=== PATIENT | female | born 1945 | race Caucasian/White ===

== ENCOUNTER 2019-10-02 09:19 | Outpatient (CLI) | payer BC, OTHER, SELFPAY ==
[2019-10-02 09:37] LABS: Add Urine Microscopic? NO; Appearance Urine Clear (Clear); Bilirubin Urine Negative (Negative); Blood Urine Negative (Negative); Color Urine Yellow (Yellow); Glucose Urine UA Negative (Negative); Ketones Urine Negative (Negative); Leukocyte Esterase Ur Negative (Negative); Nitrate Urine Negative (Negative); Protein Urine Negative (Negative); Specific Grav Ur 1.015 (1.010-1.020)
[2019-10-02 10:43] LABS: Alanine Aminotransferase 22 U/L (14-59); Albumin Level 3.8 g/dL (3.4-5.0); Alkaline Phosphatase 94 U/L (46-116); Anion Gap 11.5 mmol/L (7-16); Aspartate Amino Transferase 18 U/L (15-37); Bilirubin,Total 0.6 mg/dL (0.00-1.00); Blood Urea Nitrogen 17 mg/dL (7-18); Calcium 9.3 mg/dL (8.5-10.1); Carbon Dioxide 31 mmol/L (21-32); Chloride 104 mmol/L (98-108); Cholesterol 191 mg/dL (0-200); Creatine Kinase 46 U/L (26-192); Estimated Glomerular Filt Rate > 60; Free T3 2.78 pg/mL (2.18-3.98); Free T4 Free Thyroxine 1.14 ng/dL (0.76-1.46); Glucose 103 mg/dL (70-99); HDL Direct 76 mg/dL (40-60); LDL Cholesterol Calculated 105 mg/dL (<130); Osmolality Calculated 295 mOsm/kg (285-295); Potassium 4.5 mmol/L (3.5-5.1); Sodium 142 mmol/L (136-145); Thyroid Stimulating Hormone 0.12 uIU/mL (0.36-3.74); Total Protein 6.5 g/dL (6.4-8.2); Triglycerides 52 mg/dL (0-150)
== END 2019-10-02 09:20 | disposition home or self-care (01) ==
LOC: CHSLAB 09:25
PROVIDERS: PCP Internal Medicine; Visit Provider Internal Medicine
DX: E78.2 Mixed hyperlipidemia (principal); E03.4 Atrophy of thyroid (acquired)
CPT/HCPCS: 36415; 80053; 80061; 81003; 82550; 84439; 84443; 84481

== ENCOUNTER 2019-12-03 11:35 | Outpatient (CLI) | payer BC, OTHER, SELFPAY ==
[2019-12-03 13:06] LABS: Free T4 Free Thyroxine 1.13 ng/dL (0.76-1.46); Thyroid Stimulating Hormone 0.44 uIU/mL (0.36-3.74)
== END 2019-12-03 11:36 | disposition home or self-care (01) ==
LOC: CHSLAB 11:37
PROVIDERS: PCP Internal Medicine; Visit Provider Internal Medicine
DX: E03.4 Atrophy of thyroid (acquired) (principal)
CPT/HCPCS: 36415; 84439; 84443; 84481

== ENCOUNTER 2020-07-17 08:03 | Outpatient (CLI) | payer MEDICARE, SELFPAY ==
[2020-07-17 08:21] LABS: Appearance Urine Clear (Clear); Bilirubin Urine Negative (Negative); Color Urine Yellow (Yellow); Glucose Urine UA Negative (Negative); Ketones Urine Negative (Negative); Leukocyte Esterase Ur Negative (Negative); Nitrate Urine Negative (Negative); Protein Urine Negative (Negative)
[2020-07-17 08:26] LABS: Add Urine Microscopic? YES; Blood Urine Trace-Intact (Negative); WBC Urine 0-3 /hpf (0-3)
[2020-07-17 08:27] LABS: Bacteria Urine 1+ /hpf; Squamous Epithelial Cell Urine Many /hpf (Few)
[2020-07-17 09:05] LABS: Alanine Aminotransferase 23 U/L (14-59); Albumin Level 3.8 g/dL (3.4-5.0); Alkaline Phosphatase 84 U/L (46-116); Aspartate Amino Transferase 14 U/L (15-37); Bilirubin,Total 0.6 mg/dL (0.00-1.00); Blood Urea Nitrogen 15 mg/dL (7-18); Calcium 9.5 mg/dL (8.5-10.1); Carbon Dioxide 31 mmol/L (21-32); Cholesterol 198 mg/dL (0-200); Estimated Glomerular Filt Rate > 60; Free T3 2.41 pg/mL (2.18-3.98); Free T4 Free Thyroxine 1.08 ng/dL (0.76-1.46); Glucose 107 mg/dL (70-99); HDL Direct 73 mg/dL (40-60); LDL Cholesterol Calculated 109 mg/dL (<130); Thyroid Stimulating Hormone 0.47 uIU/mL (0.36-3.74); Total Protein 6.4 g/dL (6.4-8.2); Triglycerides 79 mg/dL (0-150)
[2020-07-17 09:10] LABS: Anion Gap 8 mmol/L (8-16); Chloride 104 mmol/L (98-108); Osmolality Calculated 296 mOsm/kg (285-295); Potassium 4.6 mmol/L (3.5-5.1); Sodium 143 mmol/L (136-145)
[2020-07-21 02:44] LABS: Vitamin D 25 Hydroxy 31 ng/mL (30-100)
== END 2020-07-17 08:04 | disposition home or self-care (01) ==
PROVIDERS: PCP Internal Medicine; Visit Provider Internal Medicine
DX: E03.4 Atrophy of thyroid (acquired) (principal); R73.01 Impaired fasting glucose; E78.2 Mixed hyperlipidemia; M81.0 Age-related osteoporosis without current pathological fracture
CPT/HCPCS: 36415; 80053; 80061; 81001; 82306; 83036; 84439; 84443; 84481

== ENCOUNTER 2021-01-08 09:01 | Outpatient (CLI) | payer MEDICARE, SELFPAY ==
--- NOTE | ~2021-01-08 | DEXA_ITS ---
Bone Density Report Name: Katina Bliss Age: 75 Sex: Female Ethnicity: White Date of : 1945 Indication: postmenopausal; screening for osteoporosis; height loss; prior fracture; hysterectomy; Referring Provider: Sintia Dunn Study: Bone densitometry was performed. Exam Date: January 08, 2021 Accession number: [id number] Bone Density: Region BMD T-score Z-score Classification AP Spine(L1, L2, L3) 0.899 -1.1 1.2 Osteopenia Femoral Neck (Left) 0.666 -1.6 0.4 Osteopenia Total Hip (Left) 0.824 -1.0 0.7 Normal Femoral Neck (Right) 0.714 -1.2 0.8 Osteopenia Total Hip (Right) 0.817 -1.0 0.7 Normal Femoral Neck Mean 0.690 -1.4 0.6 Osteopenia Total Hip Mean 0.820 -1.0 0.7 Normal World Health Organization criteria for BMD impression classify patients as: Normal (T-score at or above -1.0), Osteopenia (T-score between -1.0 and -2.5), or Osteoporosis (T-score at or below -2.5). 10-year Fracture Risk: FRAX not reported because: Prior hip or vertebral fracture Previous Exams: Region Exam Age BMD T-score BMD Change BMD Change Date g/cm2 vs Baseline vs Previous AP Spine (L1-L3) 01/08/2021 75 0.899 -1.1 -0.017 (-1.9%) -0.017 (-1.9%) 03/17/2007 61 0.916 -0.9 Total Hip(Left) 01/08/2021 75 0.824 -1.0 -0.095 (-10.4% -0.018 (-2.1%) 06/08/2017 72 0.841 -0.8 -0.078 (-8.5%) -0.012 (-1.4%) 12/03/2013 68 0.853 -0.7 -0.066 (-7.2%) -0.066 (-7.2%) 03/17/2007 61 0.919 -0.2 Total Hip(Right) 01/08/2021 75 0.817 -1.0 -0.100 (-10.9% -0.024 (-2.8%) 12/03/2013 68 0.841 -0.8 -0.077 (-8.4%) -0.077 (-8.4%) 03/17/2007 61 0.918 -0.2 *Denotes significance at 95% confidence level, LSC for AP Spine = 0.022 g/cm2, LSC for Total Hip = 0.027 g/cm2 # Denotes dissimilar scan types or analysis methods Clinical Information Provided by Patient: Have had a previous hip or vertebral fracture Has had a low trauma fracture Has the following medical conditions: Hysterectomy Patient maximum height was 63 No regular weight bearing exercise Drinks caffeinated beverages Onset of menses at age 15 Number of children 2 Impression: The patient has low bone mass, based on the Left Femoral Neck T-score. The patient has risk factors, including: previous fracture. No significant bone loss was observed. Discussion: INCREASED RISK OF FRACTURE DUE TO HISTORY OF FRACTURE. The patient's previous fracture puts the patient at high r
[2021-01-08 09:19] LABS: Appearance Urine Clear (Clear); Bilirubin Urine Negative (Negative); Color Urine Light Yellow (Yellow); Glucose Urine UA Negative (Negative); Ketones Urine Negative (Negative); Leukocyte Esterase Ur Negative (Negative); Nitrate Urine Negative (Negative); Protein Urine Negative (Negative)
[2021-01-08 09:42] LABS: Add Urine Microscopic? YES; Blood Urine Trace-Intact (Negative); RBC Urine 0-2 /hpf (0-2); Squamous Epithelial Cell Urine Few /hpf (Few); WBC Urine None seen /hpf (0-3)
[2021-01-08 09:43] LABS: Bacteria Urine Trace /hpf
[2021-01-08 10:21] LABS: Alanine Aminotransferase 25 U/L (14-59); Albumin Level 3.8 g/dL (3.4-5.0); Alkaline Phosphatase 83 U/L (46-116); Anion Gap 10 mmol/L (8-16); Bilirubin,Total 0.7 mg/dL (0.00-1.00); Calcium 9.3 mg/dL (8.5-10.1); Carbon Dioxide 29 mmol/L (21-32); Chloride 105 mmol/L (98-108); Cholesterol 215 mg/dL (0-200); Estimated Glomerular Filt Rate > 60; Free T3 2.29 pg/mL (2.18-3.98); Free T4 Free Thyroxine 1.08 ng/dL (0.76-1.46); Glucose 90 mg/dL (70-99); Potassium 3.9 mmol/L (3.5-5.1); Sodium 144 mmol/L (136-145); Thyroid Stimulating Hormone 1.31 uIU/mL (0.36-3.74); Total Protein 7.1 g/dL (6.4-8.2); Triglycerides 43 mg/dL (0-150)
[2021-01-08 15:52] LABS: Creatine Kinase 64 U/L (26-192)
[2021-01-09 18:58] LABS: Aspartate Amino Transferase 23 U/L (15-37); Blood Urea Nitrogen 18 mg/dL (7-18); Osmolality Calculated 299 mOsm/kg (285-295)
[2021-01-09 18:59] LABS: HDL Direct 78 mg/dL (40-60); LDL Cholesterol Calculated 128 mg/dL (<130)
[2021-01-12 14:47] LABS: Vitamin D 25 Hydroxy 28 ng/mL (30-100)
== END 2021-01-08 09:02 | disposition home or self-care (01) ==
LOC: CHSIMG 09:03
PROVIDERS: PCP Internal Medicine; Visit Provider Internal Medicine
DX: E03.4 Atrophy of thyroid (acquired) (principal); M81.0 Age-related osteoporosis without current pathological fracture; E78.2 Mixed hyperlipidemia
CPT/HCPCS: 36415; 77080; 80053; 80061; 81001; 82306; 82550; 84439; 84443; 84481

== ENCOUNTER 2021-03-27 13:35 | Outpatient (CLI) | payer MEDICARE, SELFPAY ==
--- NOTE | ~2021-03-27 | XR_ITS ---
EXAMINATION: XR shoulder RT min 2V DATE: 03/27/2021 14:09 INDICATION: Right shoulder pain. TECHNIQUE: 4 views of right shoulder were obtained. COMPARISON: Right shoulder radiographs 11/17/2017 FINDINGS: Bone alignment is normal. No fracture. There is mild osteoarthritis of glenohumeral joint a nd acromioclavicular joint. IMPRESSION: 1. Mild polyarticular osteoarthritis. Reviewed, dictated and finalized at location A.
--- NOTE | ~2021-03-27 | XR_ITS ---
[id number] 03/27/2021 14:09 Indication: Neck pain Procedure: 3 views cervical spine Comparison: 11/17/2017 Findings: There is normal cervical alert no cyst. Vertebral body heights are maintained. No preverteb ral soft tissue swelling. Odontoid process within normal limits. Mild multilevel uncinate degenerativ e change. Lung apices are normal Impression: 1: No significant abnormality of the cervical spine. Reviewed, dictated and finalized at location A. Impression: 1: No significant abnormality of the cervical spine.
== END 2021-03-27 13:36 | disposition home or self-care (01) ==
LOC: CHSIMG 13:38
PROVIDERS: PCP Internal Medicine; Visit Provider Nurse Practitioner Family
DX: M25.511 Pain in right shoulder (principal); M54.2 Cervicalgia
CPT/HCPCS: 72040; 73030

== ENCOUNTER 2021-07-25 07:53 | Outpatient (CLI) | payer MEDICARE, SELFPAY ==
[2021-07-25 08:35] LABS: Add Urine Microscopic? NO; Appearance Urine Clear (Clear); Bilirubin Urine Negative (Negative); Blood Urine Negative (Negative); Color Urine Light Yellow (Yellow); Glucose Urine UA Negative (Negative); Ketones Urine Negative (Negative); Leukocyte Esterase Ur Negative LEU/UL (Negative); Nitrate Urine Negative (Negative); Protein Urine Negative (Negative); pH Urine 7.5 (5.0-8.0)
[2021-07-25 08:37] LABS: Basophils Absolute Auto 0.06 K/mm3 (0.00-0.10); Eosinophils Absolute Auto 0.32 K/mm3 (0.02-0.50); Eosinophils Percent Auto 5.1 % (1.0-6.0); Hematocrit 45.7 % (35.0-42.0); Hemoglobin 14.8 g/dL (11.7-13.8); Immature Granulocyte Absolute 0.02 K/mm3 (0.00-0.00); Immature Granulocyte Percent A 0.3 % (0.0-0.0); Lymphocytes Absolute Auto 1.79 K/mm3 (1.10-4.50); Lymphocytes Percent Auto 28.5 % (18.0-42.0); Mean Corpuscular HGB Conc 32.4 g/dL (32.0-36.0); Mean Corpuscular Hemoglobin 29.8 pg (27.0-31.0); Mean Platelet Volume 9.6 fl (9.2-11.8); Monocytes Absolute Auto 0.77 K/mm3 (0.10-0.90); Monocytes Percent Auto 12.2 % (2.0-11.0); Neutrophils Absolute Auto 3.3 K/mm3 (1.7-7.2); Neutrophils Percent Auto 52.9 % (50.0-70.0); Platelet Count Result 321 K/mm3 (150-420); Red Blood Count 4.97 M/mm3 (4.20-5.40); Red Cell Distribution Width 13.7 % (11.6-14.4); White Blood Count 6.3 K/mm3 (4.8-10.8)
[2021-07-25 08:45] LABS: Hemoglobin A1C 6.1 % (<5.7)
[2021-07-25 08:48] LABS: Creatinine Urine 68.58 mg/dL (40-278); MALB Creatinine Ratio 18.9 mg/g (0-30); Microalbumin Urine Random < 13.0 mg/L
[2021-07-25 09:23] LABS: Alanine Aminotransferase 28 U/L (14-59); Albumin Level 3.7 g/dL (3.4-5.0); Alkaline Phosphatase 77 U/L (46-116); Anion Gap 7 mmol/L (8-16); Aspartate Amino Transferase 14 U/L (15-37); Bilirubin,Total 0.5 mg/dL (0.00-1.00); Blood Urea Nitrogen 14 mg/dL (7-18); Calcium 9.1 mg/dL (8.5-10.1); Carbon Dioxide 31 mmol/L (21-32); Chloride 105 mmol/L (98-108); Cholesterol 216 mg/dL (0-200); Creatine Kinase 43 U/L (26-192); Estimated Glomerular Filt Rate > 60; Free T3 2.07 pg/mL (2.18-3.98); Free T4 Free Thyroxine 1.08 ng/dL (0.76-1.46); Glucose 95 mg/dL (70-99); HDL Direct 79 mg/dL (40-60); LDL Cholesterol Calculated 127 mg/dL (<130); Osmolality Calculated 296 mOsm/kg (285-295); Potassium 4.7 mmol/L (3.5-5.1); Sodium 143 mmol/L (136-145); Thyroid Stimulating Hormone 1.53 uIU/mL (0.36-3.74); Total Protein 6.5 g/dL (6.4-8.2); Triglycerides 52 mg/dL (0-150)
== END 2021-07-25 07:54 | disposition home or self-care (01) ==
LOC: CHSLAB 07:55
PROVIDERS: PCP Internal Medicine; Visit Provider Internal Medicine
DX: E03.4 Atrophy of thyroid (acquired) (principal); E78.5 Hyperlipidemia, unspecified; R73.01 Impaired fasting glucose; N39.0 Urinary tract infection, site not specified
CPT/HCPCS: 36415; 80053; 80061; 81003; 82043; 82550; 83036; 84439; 84443; 84481; 85025

== ENCOUNTER 2022-02-06 07:29 | Outpatient (CLI) | payer MEDICARE, SELFPAY ==
[2022-02-06 07:49] LABS: Appearance Urine Clear (Clear); Basophils Absolute Auto 0.04 K/mm3 (0.00-0.10); Basophils Percent Auto 0.7 % (0.0-1.0); Bilirubin Urine Negative (Negative); Color Urine Light Yellow (Yellow); Eosinophils Absolute Auto 0.13 K/mm3 (0.02-0.50); Eosinophils Percent Auto 2.3 % (1.0-6.0); Glucose Urine UA Negative (Negative); Hematocrit 42.1 % (35.0-42.0); Hemoglobin 13.6 g/dL (11.7-13.8); Immature Granulocyte Absolute 0.02 K/mm3 (0.00-0.00); Immature Granulocyte Percent A 0.4 % (0.0-0.0); Ketones Urine Negative (Negative); Leukocyte Esterase Ur Negative (Negative); Lymphocytes Absolute Auto 1.51 K/mm3 (1.10-4.50); Lymphocytes Percent Auto 27.1 % (18.0-42.0); Mean Corpuscular HGB Conc 32.3 g/dL (32.0-36.0); Mean Corpuscular Hemoglobin 29.8 pg (27.0-31.0); Mean Corpuscular Volume 92.3 fL (78.0-102.0); Mean Platelet Volume 10.1 fl (9.2-11.8); Monocytes Absolute Auto 0.76 K/mm3 (0.10-0.90); Monocytes Percent Auto 13.6 % (2.0-11.0); Neutrophils Absolute Auto 3.1 K/mm3 (1.7-7.2); Neutrophils Percent Auto 55.9 % (50.0-70.0); Nitrate Urine Negative (Negative); Platelet Count Result 325 K/mm3 (150-420); Protein Urine Negative (Negative); Red Blood Count 4.56 M/mm3 (4.20-5.40); Red Cell Distribution Width 13.8 % (11.6-14.4); Specific Grav Ur 1.015 (1.010-1.020); Urobilinogen Urine 0.2 mg/dL (0.2-1.0); White Blood Count 5.6 K/mm3 (4.8-10.8); pH Urine 6.5 (5.0-8.0)
[2022-02-06 07:54] LABS: Add Urine Microscopic? YES; Bacteria Urine Trace /hpf; Blood Urine Trace-Intact (Negative); Squamous Epithelial Cell Urine Few /hpf (Few); WBC Urine None seen /hpf (0-3)
[2022-02-06 08:01] LABS: Hemoglobin A1C 5.9 % (<5.7)
[2022-02-06 08:15] LABS: Alanine Aminotransferase 23 U/L (14-59); Albumin Level 3.7 g/dL (3.4-5.0); Alkaline Phosphatase 83 U/L (46-116); Anion Gap 5 mmol/L (8-16); Aspartate Amino Transferase 17 U/L (15-37); Bilirubin,Total 0.7 mg/dL (0.00-1.00); Blood Urea Nitrogen 16 mg/dL (7-18); Calcium 9.2 mg/dL (8.5-10.1); Carbon Dioxide 32 mmol/L (21-32); Chloride 103 mmol/L (98-108); Cholesterol 199 mg/dL (0-200); Creatine Kinase 57 U/L (26-192); Estimated Glomerular Filt Rate > 60; Free T3 2.59 pg/mL (2.18-3.98); Free T4 Free Thyroxine 1.21 ng/dL (0.76-1.46); Glucose 102 mg/dL (70-99); HDL Direct 70 mg/dL (40-60); LDL Cholesterol Calculated 117 mg/dL (<130); Osmolality Calculated 291 mOsm/kg (285-295); Potassium 4.6 mmol/L (3.5-5.1); Sodium 140 mmol/L (136-145); Thyroid Stimulating Hormone 0.22 uIU/mL (0.36-3.74); Total Protein 6.6 g/dL (6.4-8.2); Triglycerides 59 mg/dL (0-150)
[2022-02-11 20:51] LABS: Vitamin D 25 Hydroxy 38 ng/mL (30-100)
== END 2022-02-06 07:30 | disposition home or self-care (01) ==
LOC: CHSLAB 07:32
PROVIDERS: PCP Internal Medicine; Visit Provider Internal Medicine
DX: E78.2 Mixed hyperlipidemia (principal); I10 Essential (primary) hypertension; R73.01 Impaired fasting glucose; M81.0 Age-related osteoporosis without current pathological fracture; E03.4 Atrophy of thyroid (acquired)
CPT/HCPCS: 36415; 80053; 80061; 81001; 82306; 82550; 83036; 84439; 84443; 84481; 85025

== ENCOUNTER 2022-09-25 08:30 | Outpatient (CLI) | payer MEDICARE, SELFPAY ==
[2022-09-25 08:50] LABS: Appearance Urine Clear (Clear); Bilirubin Urine Negative (Negative); Blood Urine 1+ (Negative); Color Urine Yellow (Yellow); Glucose Urine UA Negative (Negative); Ketones Urine Negative (Negative); Leukocyte Esterase Ur Trace (Negative); Nitrate Urine Negative (Negative); Protein Urine Negative (Negative); Specific Grav Ur >= 1.030 (1.010-1.020); pH Urine 5.5 (5.0-8.0)
[2022-09-25 08:52] LABS: Basophils Absolute Auto 0.05 K/mm3 (0.00-0.10); Basophils Percent Auto 0.9 % (0.0-1.0); Eosinophils Absolute Auto 0.18 K/mm3 (0.02-0.50); Eosinophils Percent Auto 3.4 % (1.0-6.0); Hematocrit 44.7 % (35.0-42.0); Hemoglobin 14.3 g/dL (11.7-13.8); Immature Granulocyte Absolute 0.03 K/mm3 (0.00-0.00); Immature Granulocyte Percent A 0.6 % (0.0-0.0); Lymphocytes Absolute Auto 1.19 K/mm3 (1.10-4.50); Lymphocytes Percent Auto 22.5 % (18.0-42.0); Mean Corpuscular Hemoglobin 29.3 pg (27.0-31.0); Mean Corpuscular Volume 91.6 fL (78.0-102.0); Mean Platelet Volume 9.9 fl (9.2-11.8); Monocytes Absolute Auto 0.78 K/mm3 (0.10-0.90); Monocytes Percent Auto 14.8 % (2.0-11.0); Neutrophils Absolute Auto 3.1 K/mm3 (1.7-7.2); Neutrophils Percent Auto 57.8 % (50.0-70.0); Platelet Count Result 321 K/mm3 (150-420); Red Blood Count 4.88 M/mm3 (4.20-5.40); Red Cell Distribution Width 13.3 % (11.6-14.4); White Blood Count 5.3 K/mm3 (4.8-10.8)
[2022-09-25 08:54] LABS: Add Urine Microscopic? YES; Bacteria Urine 1+ /hpf; Squamous Epithelial Cell Urine Moderate /hpf (Few); WBC Urine 0-3 /hpf (0-3)
[2022-09-25 09:29] LABS: Hemoglobin A1C 5.7 % (<5.7)
[2022-09-25 09:53] LABS: Alanine Aminotransferase 22 U/L (14-59); Alkaline Phosphatase 94 U/L (46-116); Anion Gap 7 mmol/L (8-16); Aspartate Amino Transferase 18 U/L (15-37); Bilirubin,Total 0.7 mg/dL (0.00-1.00); Blood Urea Nitrogen 14 mg/dL (7-18); Calcium 9.4 mg/dL (8.5-10.1); Carbon Dioxide 30 mmol/L (21-32); Chloride 105 mmol/L (98-108); Cholesterol 223 mg/dL (0-200); Creatine Kinase 51 U/L (26-192); Estimated Glomerular Filt Rate > 60; Glucose 100 mg/dL (70-99); HDL Direct 82 mg/dL (40-60); LDL Cholesterol Calculated 127 mg/dL (<130); Osmolality Calculated 294 mOsm/kg (285-295); Potassium 4.4 mmol/L (3.5-5.1); Sodium 142 mmol/L (136-145); Thyroid Stimulating Hormone 1.96 uIU/mL (0.36-3.74); Total Protein 6.8 g/dL (6.4-8.2); Triglycerides 71 mg/dL (0-150); Vitamin B12 554 pg/mL (193-986)
== END 2022-09-25 08:31 | disposition home or self-care (01) ==
LOC: CHSLAB 08:33
PROVIDERS: PCP Internal Medicine; Visit Provider Internal Medicine
DX: E78.2 Mixed hyperlipidemia (principal); E03.4 Atrophy of thyroid (acquired); M81.0 Age-related osteoporosis without current pathological fracture; R73.01 Impaired fasting glucose
CPT/HCPCS: 36415; 80053; 80061; 81001; 82550; 82607; 83036; 84439; 84443; 85025

== ENCOUNTER 2023-01-11 09:14 | Outpatient (RCR) | payer MEDICARE, SELFPAY ==
--- NOTE | 2023-01-11 11:05 | PTOPEVAL1 ---
Assessment and note entered by David Pandya Evaluation Information Assessment Status Evaluation Diagnosis right shoulder pain Onset 05/30/22 Subjective Information Pt. reports that she began developing shoulder pain in the winter. She began to notice that she could not reach behind her back to pull her pants up. She reports that sleeping is difficult due to throbbing pain in the shoulder. She states that she cannot lay on the right side. She reports that reaching overhead and behind her head is less difficult than reaching behind her back. She states that doctor fears she has a tear in the shoulder. She states that her biggest concern is her lack of mobility in the right shoulder. Pt. reports that she is right hand dominant. She reports that her goal is to decrease her right shoulder pain and improve her mobility. Reported Pain Level Pain Score 4: Self Report Assessment PT Clinical Summary Pt. is a 77 year old female who enters the clinic with right shoulder pain. She presents with objective findings consistent with right shoulder impingement. Continued skilled PT is indicated in order to improve mobility, strength, pain and postural awareness for improved IADL performance. Plan of Care Interventions Electrical Stimulation,Hot Pack/Cold Pack,Manual Therapy,Neuro Re-education,Therapeutic Activities, Therapeutic Exercise PT Services Indicated Yes Treatment Frequency and 3x/week x 12 visits Duration These treatments will address the objective and functional deficits as defined above. The patient will be advanced safely and appropriately in order for the patient to progress towards his/her prior level of function. Additional exercises will be introduced and as well as a comprehensive home exercise program upon discharge, if needed, ?to ensure carryover of functional gains achieved in the clinic. This treatment plan has been reviewed and agreement upon by the patient.
--- NOTE | 2023-01-11 11:06 | OPREHPOC ---
Outpatient Therapy Plan of Care This is a Multidisciplinary Plan of Care that may contain components documented by all disciplines (PT, OT, and ST.) PT Problem 1 PT Problem #1 Knowledge Deficit PT Goal 1 Goal Independent with a HEP addressing strength and postural control Target Visit 2 PT Problem 2 PT Problem #2 Impaired Strength PT Goal 1 Goal Pt. will present with 5/5 gross right shoulder strength Target Visit 8 PT Goal 2 Goal Pt. will be able to lift 5-10# object overhead with the right u.e. without pain. Target Visit 12 PT Problem 3 PT Problem #3 Impaired Range of Motion PT Goal 1 Goal Pt. will present with ability to reach to the mid thoracic region with the right u.e. for ease of dressing. Target Visit 12 PT Problem 4 PT Problem #4 Pain PT Goal 1 Goal Pt. will improve her Quick DASH score by 20%
--- NOTE | 2023-02-03 11:46 | OPREHPOC ---
Outpatient Therapy Plan of Care This is a Multidisciplinary Plan of Care that may contain components documented by all disciplines (PT, OT, and ST.) PT Problem 1 PT Problem #1 Knowledge Deficit PT Goal 1 Goal Independent with a HEP addressing strength and postural control Target Visit 2 Progress Met PT Problem 2 PT Problem #2 Impaired Strength PT Goal 1 Goal Pt. will present with 5/5 gross right shoulder strength Target Visit 12 Comment progressing PT Goal 2 Goal Pt. will be able to lift 5-10# object overhead with the right u.e. without pain. Target Visit 12 PT Problem 3 PT Problem #3 Impaired Range of Motion PT Goal 1 Goal Pt. will present with ability to reach to the mid thoracic region with the right u.e. for ease of dressing. Target Visit 12 Comment progressing PT Problem 4 PT Problem #4 Pain PT Goal 1 Goal Pt. will improve her Quick DASH score by 20%
--- NOTE | 2023-02-03 11:47 | PTOPPROG ---
Assessment and note entered by Marylou Pelletier DPT Evaluation Information Assessment Status Progress Diagnosis right shoulder pain Onset 05/30/22 Subjective Information Patient reports she has been able to reach to her back with improvement but does have a little discomfort. She reports she is stiffer in the mornings. She reports she has difficulty sleeping due to shoulder pain. Assessment PT Clinical Summary Patient has been seen for 10 visits of skilled PT. She is progressing well towards goals with improved R shoulder ROM and decreased pain. She continues to have difficulty with sleeping but reports improvement with reaching behind her back. She will benefit from remaining 2 visits to address impairments and return to PLOF. Plan of Care Interventions Electrical Stimulation,Hot Pack/Cold Pack,Manual Therapy,Neuro Re-education,Therapeutic Activities, Therapeutic Exercise PT Services Indicated Yes Treatment Frequency and continue with remaining 2 visits Duration These treatments will address the objective and functional deficits as defined above. The patient will be advanced safely and appropriately in order for the patient to progress towards his/her prior level of function. Additional exercises will be introduced and as well as a comprehensive home exercise program upon discharge, if needed, ?to ensure carryover of functional gains achieved in the clinic. This treatment plan has been reviewed and agreement upon by the patient.
== END 2023-02-07 09:52 | disposition home or self-care (01) ==
LOC: CHSPT 09:14
PROVIDERS: PCP Internal Medicine; Visit Provider Internal Medicine
DX: M25.511 Pain in right shoulder (principal)
CPT/HCPCS: 97014; 97110; 97140; 97161; G0283

== ENCOUNTER 2023-02-11 07:53 | Outpatient (CLI) | payer MEDICARE, SELFPAY ==
--- NOTE | ~2023-02-11 | MM_ITS ---
EXAMINATION: MM screening kenn BI w darvin HISTORY: Screening mammogram TECHNIQUE: Craniocaudal and mediolateral oblique 3-D tomosynthesis images were obtained and synthetic 2-D images were generated. CAD analysis was submitted and interpreted. COMPARISON: No prior mammogram is available for comparison at this institution. BREAST PARENCHYMAL COMPOSITION:There are scattered areas of fibroglandular density. FINDINGS: No suspicious mass, calcification, or architectural distortion are identified in either vijay ast to suggest malignancy. IMPRESSION: No mammographic evidence of malignancy. Recommend routine screening mammography in one year. BI-RADS Category 1: Negative Reviewed, dictated and finalized at location .
--- NOTE | ~2023-02-11 | DEXA_ITS ---
Bone Density Report Name: GLO RESENDEZ Age: 77 Sex: Female Ethnicity: White Date of : 1945 Indication: postmenopausal; screening for osteoporosis; height loss; inflammatory bowel disease; prior fracture; hysterectomy; Referring Provider: Sintia Dunn Study: Bone densitometry was performed. Exam Date: February 11, 2023 Accession number: [id number] Bone Density: Region BMD T-score Z-score Classification AP Spine(L2, L3) 1.072 0.1 2.6 Normal Femoral Neck (Left) 0.704 -1.3 0.8 Osteopenia Total Hip (Left) 0.830 -0.9 0.9 Normal Femoral Neck (Right) 0.709 -1.3 0.9 Osteopenia Total Hip (Right) 0.813 -1.1 0.8 Osteopenia Femoral Neck Mean 0.707 -1.3 0.8 Osteopenia Total Hip Mean 0.822 -1.0 0.8 Normal World Health Organization criteria for BMD impression classify patients as: Normal (T-score at or above -1.0), Osteopenia (T-score between -1.0 and -2.5), or Osteoporosis (T-score at or below -2.5). 10-year Fracture Risk: FRAX not reported because: Prior hip or vertebral fracture Clinical Information Provided by Patient: Have had a previous hip or vertebral fracture Has had a low trauma fracture Has used the following medications: HRT (i.e. estrogen/hormone therapy), Vitamin D, Calcium Has the following medical conditions: Inflammatory bowel diseases, Hysterectomy Patient maximum height was 62.5 Menopause Age: 52 No regular weight bearing exercise Drinks caffeinated beverages Onset of menses at age 15 Number of children 2 Impression: The patient has low bone mass, based on the Left Femoral Neck T-score. The patient has risk factors, including: previous fracture. Discussion: INCREASED RISK OF FRACTURE DUE TO HISTORY OF FRACTURE. The patient's previous fracture puts the patient at high risk of a future fracture. In untreated patients, the risk of osteoporotic fracture increases approximately two-fold for each 1.0 SD decrease in T-score. Low bone density is not the only risk factor for fracture; also consider factors such as patient's age, frailty or poor health, risk of falling, risk of injury, previous osteoporotic fracture, family history of osteoporosis, cigarette smoking, low body weight, etc. Not everyone with a low trauma fracture has osteoporosis; osteomalacia and other metabolic bone disorders should also be considered. Patients who have osteoporosis should be evaluated for specific diseases and conditions (secondary causes) that may cause or contribute to bone loss and fracture risk. National Osteoporosis Foundation (NOF) recommends pharmacologic intervention for patients with a prior hip or vertebral fracture regardless of BMD T-score. The patient should follow a healthful lifestyle (good nutrition with adequate calcium and vitamin D, and appropriate weight-bearing exercise). Follow-Up: Consider a repeat BMD and Vertebral Fracture Assessment (VF
== END 2023-02-11 07:54 | disposition home or self-care (01) ==
LOC: CHSIMG 07:55
PROVIDERS: PCP Internal Medicine; Visit Provider Internal Medicine
DX: Z12.31 Encounter for screening mammogram for malignant neoplasm of breast (principal); Z78.0 Asymptomatic menopausal state; M85.89 Other specified disorders of bone density and structure, multiple sites
CPT/HCPCS: 77063; 77067; 77080

== ENCOUNTER 2023-04-19 07:37 | Outpatient (CLI) | payer MEDICARE, SELFPAY ==
[2023-04-19 07:52] LABS: Basophils Absolute Auto 0.06 K/mm3 (0.00-0.10); Basophils Percent Auto 1.1 % (0.0-1.0); Eosinophils Percent Auto 3.8 % (1.0-6.0); Hematocrit 44.9 % (35.0-42.0); Hemoglobin 14.6 g/dL (11.7-13.8); Immature Granulocyte Absolute 0.01 K/mm3 (0.00-0.00); Immature Granulocyte Percent A 0.2 % (0.0-0.0); Lymphocytes Absolute Auto 1.34 K/mm3 (1.10-4.50); Lymphocytes Percent Auto 25.2 % (18.0-42.0); Mean Corpuscular HGB Conc 32.5 g/dL (32.0-36.0); Mean Corpuscular Hemoglobin 29.7 pg (27.0-31.0); Mean Corpuscular Volume 91.4 fL (78.0-102.0); Mean Platelet Volume 9.6 fl (9.2-11.8); Monocytes Absolute Auto 0.58 K/mm3 (0.10-0.90); Monocytes Percent Auto 10.9 % (2.0-11.0); Neutrophils Absolute Auto 3.1 K/mm3 (1.7-7.2); Neutrophils Percent Auto 58.8 % (50.0-70.0); Platelet Count Result 375 K/mm3 (150-420); Red Blood Count 4.91 M/mm3 (4.20-5.40); Red Cell Distribution Width 13.3 % (11.6-14.4); White Blood Count 5.3 K/mm3 (4.8-10.8)
[2023-04-19 07:54] LABS: Appearance Urine Clear (Clear); Bilirubin Urine 2+ (Negative); Blood Urine Trace-Intact (Negative); Glucose Urine UA Negative (Negative); Ketones Urine Trace (Negative); Leukocyte Esterase Ur Trace (Negative); Nitrate Urine Negative (Negative); Protein Urine 1+ (Negative); Specific Grav Ur 1.025 (1.010-1.020); pH Urine 6.5 (5.0-8.0)
[2023-04-19 08:10] LABS: Add Urine Microscopic? YES; Color Urine Dark Yellow (Yellow); RBC Urine 0-2 /hpf (0-2)
[2023-04-19 08:11] LABS: Bacteria Urine Rare /hpf; Squamous Epithelial Cell Urine Rare /hpf (Few); WBC Urine 0-3 /hpf (0-3)
[2023-04-19 08:15] LABS: Hemoglobin A1C 5.9 % (<5.7)
[2023-04-19 08:40] LABS: Alanine Aminotransferase 22 U/L (14-59); Albumin Level 3.7 g/dL (3.4-5.0); Alkaline Phosphatase 78 U/L (46-116); Anion Gap 7 mmol/L (8-16); Bilirubin,Total 0.7 mg/dL (0.00-1.00); Blood Urea Nitrogen 17 mg/dL (7-18); Calcium 9.1 mg/dL (8.5-10.1); Carbon Dioxide 31 mmol/L (21-32); Chloride 103 mmol/L (98-108); Cholesterol 226 mg/dL (0-200); Creatine Kinase 58 U/L (26-192); Estimated Glomerular Filt Rate > 60; Free T3 2.65 pg/mL (2.18-3.98); Free T4 Free Thyroxine 1.26 ng/dL (0.76-1.46); Glucose 105 mg/dL (70-99); HDL Direct 85 mg/dL (40-60); LDL Cholesterol Calculated 129 mg/dL (<130); Osmolality Calculated 293 mOsm/kg (285-295); Potassium 4.6 mmol/L (3.5-5.1); Sodium 141 mmol/L (136-145); Thyroid Stimulating Hormone 0.72 uIU/mL (0.36-3.74); Total Protein 6.5 g/dL (6.4-8.2); Triglycerides 60 mg/dL (0-150)
[2023-04-19 08:58] LABS: Aspartate Amino Transferase 18 U/L (15-37)
== END 2023-04-19 07:38 | disposition home or self-care (01) ==
LOC: CHSLAB 07:40
PROVIDERS: PCP Internal Medicine; Visit Provider Internal Medicine
DX: E78.2 Mixed hyperlipidemia (principal); R73.01 Impaired fasting glucose; E03.4 Atrophy of thyroid (acquired)
CPT/HCPCS: 36415; 80053; 80061; 81001; 82550; 83036; 84439; 84443; 84481; 85025

== ENCOUNTER 2023-10-29 07:18 | Outpatient (CLI) | payer MEDICARE, SELFPAY ==
[2023-10-29 10:19] LABS: Basophils Absolute Auto 0.03 K/mm3 (0.00-0.10); Basophils Percent Auto 0.5 % (0.0-1.0); Eosinophils Absolute Auto 0.12 K/mm3 (0.02-0.50); Eosinophils Percent Auto 2.2 % (1.0-6.0); Hematocrit 43.4 % (35.0-42.0); Hemoglobin 13.8 g/dL (11.7-13.8); Immature Granulocyte Absolute 0.03 K/mm3 (0.00-0.00); Immature Granulocyte Percent A 0.5 % (0.0-0.0); Lymphocytes Absolute Auto 1.35 K/mm3 (1.10-4.50); Lymphocytes Percent Auto 24.3 % (18.0-42.0); Mean Corpuscular HGB Conc 31.8 g/dL (32-36); Mean Corpuscular Hemoglobin 29.2 pg (27.0-31.0); Mean Corpuscular Volume 91.9 fL (78.0-102.0); Mean Platelet Volume 10.5 fl (9.2-11.8); Monocytes Absolute Auto 0.51 K/mm3 (0.10-0.90); Monocytes Percent Auto 9.2 % (2.0-11.0); Neutrophils Absolute Auto 3.51 K/mm3 (1.70-7.20); Neutrophils Percent Auto 63.3 % (50.0-70.0); Platelet Count Result 371 K/mm3 (150-420); Red Blood Count 4.72 M/mm3 (4.20-5.40); Red Cell Distribution Width 13.6 % (11.6-14.4); White Blood Count 5.6 K/mm3 (4.8-10.8)
[2023-10-29 10:37] LABS: Bilirubin Urine Negative (Negative); Blood Urine Negative (Negative); Color Urine Yellow (Yellow); Glucose Urine UA Negative (Negative); Ketones Urine Negative (Negative); Leukocyte Esterase Ur Trace LEU/UL (Negative); Nitrate Urine Negative (Negative); Protein Urine 1+ (Negative); pH Urine 8.5 (5.0-8.0)
[2023-10-29 10:43] LABS: Alanine Aminotransferase 24 U/L (14-59); Albumin Level 3.7 g/dL (3.4-5.0); Alkaline Phosphatase 53 U/L (46-116); Anion Gap 7 mmol/L (4-12); Aspartate Amino Transferase 18 U/L (15-37); Bilirubin,Total 0.7 mg/dL (0.00-1.00); Blood Urea Nitrogen 18 mg/dL (7-18); Calcium 8.9 mg/dL (8.5-10.1); Carbon Dioxide 32 mmol/L (21-32); Chloride 104 mmol/L (98-108); Cholesterol 208 mg/dL (0-200); Creatine Kinase 54 U/L (26-192); Estimated Glomerular Filt Rate > 60; Free T4 Free Thyroxine 1.17 ng/dL (0.76-1.46); Glucose 96 mg/dL (70-99); HDL Direct 75 mg/dL (40-60); LDL Cholesterol Calculated 123 mg/dL (<130); Osmolality Calculated 297 mOsm/kg (285-295); Potassium 4.7 mmol/L (3.5-5.1); Sodium 143 mmol/L (136-145); Thyroid Stimulating Hormone 1.01 uIU/mL (0.36-3.74); Total Protein 6.9 g/dL (6.4-8.2); Triglycerides 49 mg/dL (0-150)
[2023-10-29 10:49] LABS: Add Urine Microscopic? YES; Appearance Urine Sl Cloudy (Clear)
[2023-10-29 10:50] LABS: Bacteria Urine 1+ /hpf; RBC Urine 0-2 /hpf (0-2); Squamous Epithelial Cell Urine Many /hpf (Few); WBC Urine 0-3 /hpf (0-3)
[2023-10-29 10:53] LABS: Hemoglobin A1C 5.3 % (<5.7)
== END 2023-10-29 07:19 | disposition home or self-care (01) ==
LOC: CHSLAB 07:20
PROVIDERS: PCP Internal Medicine; Visit Provider Internal Medicine
DX: M81.0 Age-related osteoporosis without current pathological fracture (principal); E03.4 Atrophy of thyroid (acquired); E78.2 Mixed hyperlipidemia; R73.01 Impaired fasting glucose
CPT/HCPCS: 36415; 80053; 80061; 81001; 82550; 83036; 84439; 84443; 85025

== ENCOUNTER 2023-12-19 13:25 | Outpatient (CLI) | payer MEDICARE, SELFPAY ==
--- NOTE | 2024-01-18 11:23 | WPDHOLTEREM ---
Holter/Event Monitor Holter/Event Monitor Date of procedure: 12/19/23 Holter/Event Procedure: Event Monitor Indications: Palpitations Conclusion: 1. 28 days event monitor between 12/19/23-01/17/24. There are 38 available transmissions for analysis. 2. Underlying rhythm is sinus rhythm. HR range 50-120 bpm; average HR 76 bpm. 3. There are occasional premature supraventricular complexes with total burden no 1%. No supraventricular tachycardia. 4. There are occasional premature ventricular complexes with total burden of 2%. No ventricular tachycardia. 5. No significant pauses greater than 2 seconds. 6. There are 23 episodes of symptoms of heart racing, and symptom other than listed which demonstrate sinus rhythm, HR range 69-115 bpm with 2 episodes with PAC's and 14 episodes with PVC's.
== END 2023-12-19 13:26 | disposition home or self-care (01) ==
LOC: CHSCARD 13:28
PROVIDERS: PCP Internal Medicine; Visit Provider Internal Medicine
DX: R00.2 Palpitations (principal)
CPT/HCPCS: 93270

== ENCOUNTER 2024-02-10 11:09 | Outpatient (CLI) | payer MEDICARE, SELFPAY ==
[2024-02-10 11:22] LABS: Hematocrit 42.8 % (35.0-42.0); Hemoglobin 14.2 g/dL (11.7-13.8); Mean Corpuscular HGB Conc 33.2 g/dL (32-36); Mean Corpuscular Hemoglobin 30.1 pg (27.0-31.0); Mean Corpuscular Volume 90.9 fL (78.0-102.0); Mean Platelet Volume 9.5 fl (9.2-11.8); Platelet Count Result 317 K/mm3 (150-420); Red Blood Count 4.71 M/mm3 (4.20-5.40); Red Cell Distribution Width 13.6 % (11.6-14.4); White Blood Count 5.9 K/mm3 (4.8-10.8)
[2024-02-10 12:38] LABS: Band Neutrophils Percent 0 % (0-6); Eosinophils Absolute Manual 0.23 K/mm3 (0.02-0.50); Eosinophils Percent Manual 4 % (1-6); Lymphocytes Absolute Manual 1.18 K/mm3 (1.1-4.5); Lymphocytes Percent Manual 20 % (18-44); Monocytes Absolute Manual 0.94 K/mm3 (0.1-0.90); Monocytes Percent Manual 16 % (3-9); Neutrophils Absolute Manual 3.54 K/mm3 (1.7-7.2); Neutrophils Percent Manual 60 % (46-73); Platelet Estimate Adequate (Adequate); Schistocytes None Seen; Total Cells Counted 100
== END 2024-02-10 11:10 | disposition home or self-care (01) ==
LOC: CHSLAB 11:13
PROVIDERS: PCP Internal Medicine; Visit Provider Internal Medicine
DX: L03.90 Cellulitis, unspecified (principal)
CPT/HCPCS: 36415; 85025

== ENCOUNTER 2024-05-11 07:24 | Outpatient (CLI) | payer MEDICARE, SELFPAY ==
[2024-05-11 08:40] LABS: Add Urine Microscopic? NO; Appearance Urine Clear (Clear); Bilirubin Urine Negative (Negative); Blood Urine Negative (Negative); Color Urine Yellow (Yellow); Glucose Urine UA Negative (Negative); Ketones Urine Negative (Negative); Leukocyte Esterase Ur Negative (Negative); Nitrate Urine Negative (Negative); Protein Urine Negative (Negative); Specific Grav Ur 1.015 (1.010-1.020); pH Urine 8.5 (5.0-8.0)
[2024-05-11 08:43] LABS: Hematocrit 43.3 % (35.0-42.0); Hemoglobin 14.3 g/dL (11.7-13.8); Mean Corpuscular Hemoglobin 29.5 pg (27.0-31.0); Mean Corpuscular Volume 89.5 fL (78.0-102.0); Mean Platelet Volume 10.3 fl (9.2-11.8); Platelet Count Result 367 K/mm3 (150-420); Red Blood Count 4.84 M/mm3 (4.20-5.40); Red Cell Distribution Width 13.2 % (11.6-14.4); White Blood Count 6.1 K/mm3 (4.8-10.8)
[2024-05-11 08:58] LABS: Hemoglobin A1C 5.9 % (<5.7)
[2024-05-11 09:23] LABS: Alanine Aminotransferase 22 U/L (14-59); Albumin Level 3.8 g/dL (3.4-5.0); Alkaline Phosphatase 71 U/L (46-116); Anion Gap 8 mmol/L (4-12); Aspartate Amino Transferase 17 U/L (15-37); Bilirubin,Total 0.6 mg/dL (0.00-1.00); Blood Urea Nitrogen 14 mg/dL (7-18); Calcium 9.2 mg/dL (8.5-10.1); Carbon Dioxide 28 mmol/L (21-32); Chloride 104 mmol/L (98-108); Cholesterol 226 mg/dL (0-200); Creatine Kinase 55 U/L (26-192); Estimated Glomerular Filt Rate > 60; Free T4 Free Thyroxine 1.33 ng/dL (0.76-1.46); Glucose 105 mg/dL (70-99); HDL Direct 84 mg/dL (40-60); LDL Cholesterol Calculated 129 mg/dL (<130); Osmolality Calculated 290 mOsm/kg (285-295); Potassium 4.5 mmol/L (3.5-5.1); Sodium 140 mmol/L (136-145); Thyroid Stimulating Hormone 0.62 uIU/mL (0.36-3.74); Total Protein 6.6 g/dL (6.4-8.2); Triglycerides 66 mg/dL (0-150)
== END 2024-05-11 07:25 | disposition home or self-care (01) ==
PROVIDERS: PCP Internal Medicine; Visit Provider Internal Medicine
DX: E78.2 Mixed hyperlipidemia (principal); R73.01 Impaired fasting glucose; E03.4 Atrophy of thyroid (acquired)
CPT/HCPCS: 36415; 80053; 80061; 81003; 82550; 83036; 84439; 84443; 85027

== ENCOUNTER 2024-09-13 11:55 | Outpatient (CLI) | payer MEDICARE, SELFPAY ==
--- NOTE | ~2024-09-13 | DEXA_ITS ---
Bone Density Report Name: GLO RESENDEZ Age: 79 Sex: Female Ethnicity: White Date of : 1945 Indication: osteopenia; monitoring treatment; height loss; inflammatory bowel disease; prior fracture; hysterectomy; Referring Provider: Sintia Dunn Study: Bone densitometry was performed. Exam Date: September 13, 2024 Accession number: [id number] Bone Density: Region BMD T-score Z-score Classification AP Spine(L1, L2, L3) 0.996 -0.2 2.3 Normal Femoral Neck (Left) 0.700 -1.3 0.8 Osteopenia Total Hip (Left) 0.887 -0.4 1.5 Normal Femoral Neck (Right) 0.739 -1.0 1.2 Normal Total Hip (Right) 0.896 -0.4 1.5 Normal Femoral Neck Mean 0.720 -1.2 1.0 Osteopenia Total Hip Mean 0.892 -0.4 1.5 Normal World Health Organization criteria for BMD impression classify patients as: Normal (T-score at or above -1.0), Osteopenia (T-score between -1.0 and -2.5), or Osteoporosis (T-score at or below -2.5). 10-year Fracture Risk: FRAX not reported because: Prior hip or vertebral fracture Treated for osteoporosis Previous Exams: Region Exam Age BMD T-score BMD Change BMD Change Date g/cm2 vs Baseline vs Previous AP Spine (L1-L3) 09/13/2024 79 0.996 -0.2 0.080 (8.7%)# 0.097 (10.8%)* 01/08/2021 75 0.899 -1.1 -0.017 (-1.9%) -0.017 (-1.9%) 03/17/2007 61 0.916 -0.9 *Denotes significance at 95% confidence level, LSC for AP Spine = 0.022 g/cm2 # Denotes dissimilar scan types or analysis methods Clinical Information Provided by Patient: Have had a previous hip or vertebral fracture Has had a low trauma fracture Is being treated for osteoporosis Has used the following medications: Fosamax (i.e. alendronate), Vitamin D Has the following medical conditions: Inflammatory bowel diseases, Hysterectomy Patient maximum height was 64 Menopause Age: 52 No regular weight bearing exercise Drinks caffeinated beverages Onset of menses at age 15 Number of children 2 Impression: The patient has low bone mass, based on the Left Femoral Neck T-score. The patient has risk factors, including: previous fracture. No significant bone loss was observed. Discussion: PATIENT UNDER TREATMENT WITH NO SIGNIFICANT BMD LOSS SINCE LAST EXAM. In an untreated patient, BMD typically declines with age. A lack of decline or gain is usually a sign that treatment is efficacious and fracture risk is reduced. It is important to ask patients whether they are taking their medications and to encourage continued and appropriate compliance with their osteoporosis therapies to reduce fracture risk. It is also important to review their risk factors and encourage appropriate calcium and vitamin D intakes, exercise, fall prevention and other lifestyle measures. Follow-Up: Consider a repeat BMD and Vertebral Fracture Assessment (VFA) exam in 2 years or sooner if medically necessary, to reassess this patient's status. Reported by: WEN on 09/13/2024 12:49:00 PM. Reviewed, dictated and finalized at location A.
--- NOTE | ~2024-09-13 | MM_ITS ---
EXAMINATION: MM screening kenn BI w darvin HISTORY: Screening TECHNIQUE: Craniocaudal and mediolateral oblique 3-D tomosynthesis images were obtained and synthetic 2-D images were generated. CAD analysis was submitted and interpreted. COMPARISON: 02/11/2023 BREAST PARENCHYMAL COMPOSITION: Not dense: There are scattered areas of fibroglandular density. FINDINGS: There is no evidence of suspicious mass, calcification, or architectural distortion to sugg est malignancy in either breast. There has been no suspicious interval change. IMPRESSION: 1. No mammographic evidence of malignancy. 2. Recommend routine screening mammography in one year. BI-RADS Category 1: Negative Reviewed, dictated and finalized at location B.
--- OUTSIDE RECORDS SUMMARY | 2024-09-13 12:31 | XMS_ITS | Clinical Summary ---
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 Indications: Major Depressive Disorder Active citalopram (CELEXA) 20 MG TabletIndicatio ns:Depression Take 20 mg by mouth daily. Indications: Depression Active levothyroxine (SYNTHROID) 100 MCG TabletIndicatio ns:Hypothyroidi sm Take 100 mcg by mouth daily. Indications: Underactive Thyroid Active lovastatin (MEVACOR) 20 MG Tablet Take 20 mg by mouth every evening. Active Ferrous Sulfate (IRON) 325 (65 FE) MG TabletIndicatio ns:Iron Deficiency Anemia Take by mouth. Indications: Anemia From Inadequate Iron in the Body Active Ibuprofen (ADVIL) 200 MG CapsuleIndicati ons:Rheumatoid Arthritis Take by mouth. Indications: Rheumatoid Arthritis Active FLUZONE HIGH-DOSE 0.5 ML Suspension Prefilled Syringe 0 5 Active Immunizations Immunization Administration Dates Next Due Influenza Vaccine greater than 3 yrs 04/01/2015 Family History Medical History Relation Name Comments Alcohol Abuse Father Cancer Father Cancer Mother Cancer Sister Relation Name Status Comments Father Mother Sister Social History Tobacco Use Types Packs/Day Years Used Date Smoking Tobacco: Never Alcohol Use Standard Drinks/Week Comments No 0 (1 standard drink = 0.6 oz pur e alcohol) Comments No Sex and Gender Information Value Date Recorded Sex Assigned at Not on file Legal Sex Female 11:37 PM CDT Gender Identity Not on file Sexual Orientation Not on file Last Filed Vital Signs Vital Sign Reading Time Taken Comments Blood Pressure 122/80 05/20/2015 10:11 AM 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 [employer] Pulse 86 05/20/2015 10:11 AM 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 [employer] Temperature - - Respiratory Rate - - Oxygen Saturation - - Inhaled Oxygen Concentration - - Weight 57.6 kg (127 lb) 05/20/2015 10:11 AM 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 [employer] Height 155.8 cm (5' 1.34 ) 05/20/2015 10:11 AM C Body Mass Index 23.73 05/20/2015 10:11 AM 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 [employer] Plan of Treatment Health Maintenance Due Date Last Done Comments DEXA Bone Density 1945 Hepatitis C Virus (HCV) Screening 1945 TdaP Immunization 1945 Pneumococcal Immunization (5 0+ years) (1 of 1 - PCV) 1997 Zoster Immunization (1 of 2) 1997 Respiratory Syncytial Virus (RSV) Immunization (Adult) (1 - 1-dose 75+ series) 2022 Influenza Immunization (#1) 2024 04/01/2015 SARS-COV-2 Immunization ( - season) 2024 Hepatitis B Immunization Aged Out No longer eligible based on patient's age to complete this topic Meningococcal Immunization (ACWY) Aged Out No longer eligible based on patient's age to complete this topic Rotavirus Immunization Aged Out No lo nger eligible based on patient's age to complete this topic Insurance [facility] Care Teams Gas Stove Servicer Helper Relationship Specialty Start Date End Date Sintia Dunn MD [address] [id number] PCP - General Family Medicine 05/07/15
--- OUTSIDE RECORDS SUMMARY | 2024-09-13 12:31 | XMS_ITS | Clinical Summary ---
Author Organization [facility] Address [address] [place] [id number] Care Team Providers Care Tool Adjuster Name Role Phone Unavailable Primary Care Provider Unavailabl e Social History Tobacco Use Types Packs/Day Years Used Date Smoking Tobacco: Never Assessed Comments Unknown Sex and Gender Information Value Date Recorded Sex Assigned at Not on file Legal Sex Female 7:55 PM CDT Gender Identity Not on file Sexual Orientation Not on file Plan of Treatment Health Maintenance Due Date Last Done Comments Hepatitis C 1965 DTaP, Tdap and Td Vaccines ( 1 - Tdap) 1966 Zoster Vaccines (1 of 2) 1997 Dexa Scan (General) 2012 Pneumococcal Vaccine: 50+ Ye ars (1 of 1 - PCV) 2012 RSV Immunization or 60+ Years (1 - 1-dose 75+ series) 2022 COVID-19 Vaccine ( - 2023-2 5 season) 2024 Meningococcal B Vaccine Aged Out No l onger eligible based on patient's age to complete this topic Meningococcal Vaccine Aged Out No anabela deirdre eligible based on patient's age to complete this topic RSV Immunizations Under 20 Months Aged Out No longer eligible based on patient's age to complete this topic
--- OUTSIDE RECORDS SUMMARY | 2024-09-13 12:31 | XMS_ITS | Continuity of Care Document ---
Author Organization [facility] [place] [place] [address] [place] [address] Phone Care Team Providers Care Insurance Follow Up Rep Name Role Phone Mino Sawyer MD Unavailable Unavailable Allergies, Adverse Reactions, Alerts Substance Reaction Status Criticality morphine Active No Information Medications Medication Instructions Dosage Effective Dates (start - stop) Status Comments bupropion HCl SR 150 mg tablet,12 hr sustained-release take 1 tablet by oral route 2 times every day 150 MG - Active TIROSINT (unknown strength) 1 tablet by mouth once a day Not Available - Active lovastatin 40 mg tablet take 1 tablet by oral route every day with the evening meal 40 MG - Active duloxetine 30 mg capsule,delayed release take 1 capsule by oral route every day 30 MG - Active Procedures Procedure Date Post-op Follow-up Visit No Charge Refraction After Cataract Laser Surgery Post-op Follow-up Visit Post-op Follow-up Visit No Charge Refraction After Cataract Laser Surgery Eye Exam & Treatment No Charge Refraction Post-op Follow-up Visit Post-op Follow-up Visit Post-op Follow-up Visit Post-op Follow-up Visit Remove Cataract, Insert Lens Astigmatism Correcting Toric IOL Symfony IOLMaster-Professional No Charge Refraction Post-op Follow-up Visit No Charge Refraction Post-op Follow-up Visit Post-op Follow-up Visit Remove Cataract, Insert Lens Presbyopia Correcting IOL Symfony IOLMaster-Professional Corneal Topography IOLMaster-Technical No Charge Refraction Office/outpatient Visit, Est IOLMaster-Technical No Charge Refraction Eye Exam & Treatment Office/outpatient Visit, Est Office/outpatient Visit, Est Office/outpatient Visit, New Advance Directives Directive Yes / No Effective Date File Name No Information Encounters Encounter Description Practice Location Reason(s) For Visit Diagnoses Date Provider Providers Copied on Encounter [facility], [address] [place], [place] [address], [place], [address], tel:[phone] SEC Yosi BARON Professional 1 month s/p YAG PC (chief complaint) Encounter for examination following surgery Silverio Herzog. [address] [facility] [place], [address], [place]. tel:[phone] Referring Provider: Xavier Middleton OD, [facility] [address] [place], [address]. tel:[phone] [facility], [address] [place] [address] [address], [place], [place], [address], tel:[phone] SEC [place] Professional Laser procedure (chief complaint) Encounter for examination following surgeryOther secondary cataract, left eye 9 Silverio Herzog. [address] [employer], [facility] [place], [address], [place]. tel:[phone] Referring Provider: Xavier Middleton OD, [facility] [address] [place], [address]. tel:[phone] [facility], [address], [place], [place], [address], [place] tel:[phone] SEC Yosi BARON Professional Blurry vision (chief complaint) Encounter for examination following surgery 8 Silverio Herzog. [address], [place], [place], [address], [place]. tel:[phone] Referring Provider: Xavier Middleton OD, [facility] [address] [place], [address]. tel:[phone] [facility], [address], [place], [place], [address], [place] tel:[phone] SEC Yosi BARON Professional Complete Exam (chief complaint) Other secondary cataract, bilateralPre sence of intraocular lens 8 Silverio Herzog. [address], [place], [place], [address], [place]. tel:[phone] Referring Provider: Xavier Middleton OD, [facility] [address] [place], [address]. tel:[phone] [facility], [address], [place], [place], [address], [place] tel:[phone] SEC Yosi BARON Professional No Information 8 Silverio Herzog. [address], [place], [place], [address], [place]. tel:[phone] [facility], [address], [place], [place], [address], [place] tel:[phone] SEC Yosi BARON Professional Post-Op (chief complaint) No Information 7 Silverio Herzog. [address], [place], [place], [address], [place]. tel:[phone] Referring Provider: Xavier Middleton OD, [facility] [address] [place], [address]. tel:[phone] [facility], [address] [place] [address] [address], [place], [place], [address], [place] tel:[phone] SEC Yosi BARON Professional 1 wk Symphony PO (chief complaint) No Information b-2 4-201 7 Silverio Herzog. [address] [employer], [address] [place], [address], [place]. tel:[phone] Referring Provider: Xavier Middleton OD, [facility] [address] [place], [address]. tel:[phone] [facility], [address] [place] [address] [address], [place], [place], [address], [place] [phone] SEC Yosi BARON Professional 2 day PO (chief complaint) No Information b-1 0-201 7 Silverio Herzog. [address] [employer], [address] [place], [address], [place]. tel:[phone] Referring Provider: Xavier Middleton OD, [facility] [address] [place], [address]. tel:[phone] [facility], [address] [place] [address] [address], [place], [place], [address], [place] tel:[phone] SEC Yosi BARON Professional Post-Op (chief complaint) No Information Feb-0 9-201 7 Asiya [place]. [address] [employer], [place], [place], [address], [place]. tel:[phone] Referring Provider: Xavier Middleton OD, [facility] [address] [place], [address]. tel:[phone] [facility], [address] [place] [address] [address], [place], [place], [address], [place] [phone] [facility] [facility] No Information 0 7 Silverio Herzog. [address] [facility], [facility] [place], [address], [place]. tel:[phone] Referring Provider: Xavier Middleton OD, [facility] [address] [place], [address]. tel:[phone] [facility], [address] [place] [address] [address], [address], tel:[phone] SEC [place] [facility] No Information 0 7 Silverio Herzog. [address] [facility], [facility] [place], [address], [place]. tel:[phone] Referring Provider: Xavier Middleton OD, [facility] [address] [place], [address]. tel:[phone] [facility], [address] [place] [address] [address], [address], [place] tel:[phone] SEC [place] Professional Post-Op (chief complaint) No Information 0 7 Silverio Herzog. [address] [facility], [facility] [place], [address], [place]. tel:[phone] Referring Provider: Xavier Middleton OD, [facility] [address] [place], [address]. tel:[phone] [facility], [address] [place] [address] [address], [address], [place] tel:[phone] SEC [place] Professional 1 week post op (chief complaint) No Information 7 Silverio Herzog. [address] [facility], [facility] [place], [address], [place]. tel:[phone] Referring Provider: Xavier Middleton OD, [facility] [address] [place], [address]. tel:[phone] [facility], [address], [place], [place], [address], [place] tel:[phone] SEC [place] [employer] Professional 1 day PO PCIOL Symphony Lens (chief complaint) No Information 7 Asiya [place]. [address], [address] [place], [address], [place]. tel:[phone] Referring Provider: Xavier Middleton OD, [facility] [address] [place], [address]. tel:[phone] [facility], [address] [place] [address] [address], [place], [place], [address], [place] tel:[phone] [facility] No Information Silverio Herzog. [address], [address] [place], [address], [place]. tel:[phone] Referring Provider: Xavier Middleton OD, [facility] [address] [place], [address]. tel:[phone] [facility], [address] [place] [address] [address], [place], [place], [address], [place] tel:[phone] SEC Srikanth Ramirezh No Information Silverio Herzog. [address], [address] [place], [address], [place]. tel:[phone] Referring Provider: Xavier Middleton OD, [facility] [address] [place], [address]. tel:[phone] [facility], [address] [place] [address] [address], [place], [place], [address], [place] tel:[phone] SEC Srikanth N [address] Repeat Measurements (chief complaint) No Information 6 Silverio Herzog. [address], [place], [place], [address], [place]. tel:[phone] Referring Provider: Xavier Emi OD, [facility] [address] [place], [address]. tel:[phone] Office/outpa tient Visit, [facility], [address] [place] [address] [address], [place], [place], [address], [place] tel:[phone] SEC [place] [employer] Professional Cataract evaluation (chief complaint) No Information Oct-2 6-201 6 Silverio Herzog. [address] [facility], [facility] [place], [address], [place]. tel:[phone] Referring Provider: Xaveir Emi OD, [facility] [address] [place], [address]. tel:[phone] [facility], [address] [place] [address] [address], [place], [place], [address], [place] tel:[phone] SEC Yosi [place] Professional Complete Exam (chief complaint) No Information Oct-0 5-201 6 Richkconcetta [place]. [address] [facility], [facility] [place], [address], [place]. tel:[phone] Referring Provider: Xavier Emi OD, [facility] [address] [place], [address]. tel:[phone] Office/outpa tient Visit, [facility], [address] [place] [address] [address], [place], [place], [address], [place] tel:[phone] SEC [employer] Professional No Information Dec-3 0-201 3 Asiya [place]. [address] [facility] [place], [address], [place]. tel:[phone] Referring Provider: Xavierfloridalma Middleton OD, [facility] [address] [place], [address]. tel:[phone] Office/outpa tient Visit, [facility], [address], [place], [place], [address], [place] tel:[phone] SEC Yosi BARON Professional No Information 3 Asiya [place]. [address] [employer], [facility] [place], [address], [place]. tel:[phone] Referring Provider: Xavier Middleton OD, [facility] [address] [place], [address]. tel:[phone] Office/outpa tient Visit, [email or web address] [address], [place], [place], [address], [place] tel:[phone] SEC Yosi LORAINE Professional No Information 2 Asiya [place]. [address] [employer], [facility] [place], [address], [place]. tel:[phone] Referring Provider: Xavier Middleton OD, [facility] [address] [place], [address]. tel:[phone] Family History Family Member Type Diagnosis Age At Onset Son Problem (finding) retinal detachment Payers Payer name Insurance type Covered constitution party ID Authoriza tion(s) No Information Social History Type Description Quantity Date Captured Comments Alcohol Use Details Caffeine Use Details Tobacco Use Status Current non-smoker 19 Smoking Status Never smoker Non-Smoking Tobacco Use Details : No Details Available : No Details Available Sex Female Chief Complaint And Reason For Visit From encounter dated '07/10/2018 14:45'. 1 month s/p YAG PC (chief complaint). Description: The 73 year old female presents for evaluation of 1 month s/p YAG PC in the left eye. Patient states VA is great since the laser she only wears OTC reading glasses to see up close. Reason For Referral Reason For Referral No Information Plan Of Treatment Date Type Action Status Patient Education Learning About YAG Lase r Capsulotomy completed Patient Education Learning About YAG Lase r Capsulotomy completed History Of Present Illness Encounter Date Complaint History Of Prese nt Illness 1 month s/p YAG PC The 73 year o ld female presents for evaluation of 1 month s/p YAG PC in the left eye. Patient states VA is great since the laser she only wears OTC reading glasses to see up close. Laser procedure The 73 year old female presents for a YAG PC OS and a 1 month post op yag pc OD. Patient states vision OD is alot better. Patient states it's like looking through a dirty glass with OS. Blurry vision The 73 year old female presents for evaluation of Blurry vision in the left eye. Pt reports OD is very bright and clear. Pt reports she thinks OS is more blurry than when she came in to see us this am. Pt denies any pain or irritation, OU. Complete Exam The 73 year old female presents for evaluation of Complete Exam in the right eye and left eye. Hx of Symfony IOL OD and Symfony Toric IOL OS. Patient states VA is foggy and cloudy started about 2 months ago. Post-Op The 71 year old female presents for a 1 month post op CE OS (Symfony). Patient is pseudo ou with Symfony lens. Patient is finished with drops. Patient states ou is doing good. 1 wk Symphony PO The 71 year old female presents for 1 wk Symphony PO in the left eye. Pt has Hx of PCIOL OU with Symphony Toric OS with small wrinkle @ 57 degrees and Symphony OD, high myopia OU, Lattice Degeneration OU and floaters OS. Pt still using Diclofenac, Pred, and Vigamox as directed. Pt denies any pain, irritation, or discomfort OU. 2 day PO The 71 year old female presents for 2 day PO in the left eye. S/p PCIOL Symphony Toric. Per Dr. Braden, due to OS wrinkle. Pt states no VA complaints, pain, or discomfort. Pt using all Sx as instructed. Post-Op The 71 year old female presents for a 1 day post op CE OS with Symfony toric IOL. Patient is using Pred qid, Vigamox qid and Diclofenac tid OS. Patient is still using drops in OD. Patient has a little discomfort OS. Post-Op The 71 year old female presents for a 2 week post op CE OD (Symfony). Patient is using Pred, Diclofenac and Vigamox as directed. Patient c/o yesterday she was reading and got a headache and just had some discomfort. Patient notices a difference between eyes and c/o hard to watch TV and to read small print. 1 week post op The 71 year old female presents for 1 week post op in the right eye with Symfony lens. Pt states she cannot use old glasses even with plano lens and is off balance. Pt is using Vigamox TID OD, Diclofenac TID OD, Pred TID OD. 1 day PO PCIOL Symphony Lens The 71 year old female presents for 1 day PO PCIOL Symphony Lens in the right eye. Hx Cataracts OS, High Myopia OU. Pt using Vigamox and Pred QID OD and Diclo TID OD. Post op instructions explained, understood and given to pt. Pt states OD is doing ok. States she is not having any pain or discomfort and VA is good. Repeat Measurements The 71 year old female presents for Repeat Measurements in the right eye and left eye. Pt here for Repeat IOL master, Pentacam and see JMN to go over lens options Cataract evaluation The 70 year old female presents for Cataract evaluation ou per Dr. Braden. Patient c/o glare at night. Patient c/o harder to see the words on TV and harder to see street signs. Complete Exam The 70 year old female presents for Complete Exam in the right eye and left eye monitoring lattice degeneration. Patient c/o hard to see the words on TV and c/o glare at night. Patient c/o harder to read street signs. Functional Status Date Functional Assessmen t No Information Instructions Date Instruction Additional Korinr jose Impression/Plan Impression/Plan Impression/Plan Impression/Plan Impression/Plan - 1 month s/p Phaco Symfony Toric IOL OS:- Patient has healed well.- All post operative medications are finished.- Vision is good and IOP is stable.- Patient will return to Xavier Middleton OD for regularly scheduled visits. Follow up - Return t o Xavier Middleton, OD Impression/Plan - On e week PO s/p Phaco with Symfony Toric IOL OS:- IOL in good position; healing well.- Patient advised they no longer need to wear the shield over the eye at bedtime.- Medication instillation and post op instructions reviewed.- Patient will return in 1 week or sooner with problems.*NO dilation required at the next appointment unless the vision is decreased in either eye* Follow up - Return t o clinic as scheduled Follow up - Return t o clinic as scheduled Impression/Plan - 2 Day PO s/p Phaco with Symfony IOL OS.- IOL in good position at 57 degrees.- Patient healing well.- Mild PC wrinkle OS discussed with patient.- No treatment for the wrinkle recommended at this time.- Recommend the use of +1.50 or +1.75 OTCR reading glasses.- Medication instillation, shield use and restrictions reviewed with patient.- Return to clinic as scheduled or sooner with problems. Impression/Plan - 1 day post op Phaco with PCIOL OS, discussed post op instructions and medication use. Patient aware of large wrinkle OS. I would like pt to return to clinic tomorrow for post op with Dr Sawyer. Follow up - 1 [facility] Sawyer for post op Follow up - Proceed with OS CE as scheduled Impression/Plan - 2 week s/p Phaco with Symfony IOL OD. Patient is healing well. Medication instillation reviewed in detail with patient. Patient understands to get a refill of the drops before OS CE. Recommend +1.25 OTCR. Vision is good and IOP is stable. Patient elects to proceed with OS CE as scheduled. Impression/Plan - On e week PO s/p Phaco with Symfony IOL OD. IOL in good position; healing well. Patient advised they no longer need to wear the shield over the eye at bedtime. Medication instillation and post op instructions reviewed. Patient will return in 1 week or sooner with problems. Follow up - Return t o clinic as scheduled Impression/Plan - 1 day post op Phaco with PCIOL OD, discussed post op instructions and medication use. Return to clinic as scheduled. Follow up - as scheduled Follow up - Schedule OD CE first with the Symfony IOL, followed by OS CE with the Symfony Toric IOL Impression/Plan - Ca taract surgery measurements reviewed with patient. Lifestyle lens options discussed. 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 Patient is interested in having a multifocal IOL. Patient understands that the Symfony IOL will give her good distance vision, good intermediate vision and ok near vision. Patient understands for small print she may need reading glasses at times. Explained this IOL is the best option to decrease the daily need for glasses for most daily activities, but we cannot guarantee that she won't ever need glasses. Patient elects to schedule OD CE first with the Symfony MF, followed 3 weeks later by OS CE with the Symfony Toric MF IOL. *POST OP APPOINTMENTS: OD- 1 day, 1 week, 2 week / OS CE 3 weeks after OD CE / OS- 1 day, 1 week, 1 month*Luis Carlos OU Nuclear sclerosis of right eye - Written educational material given. 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 Related to Nuclear sclerosis of right eye Impression/Plan - Ca taract OD>OS accounts for patient's visual complaints. Discussed all risks, benefits and alternatives pertaining to cataract surgery. Explained that due to her high myopia and lattice degeneration OU her risk for retinal holes, tears or detachments following CE is slightly higher than the average patient. Advised patient to call with a new onset of floaters, flashes, or curtain vision loss. The procedure and recovery from cataract extraction were discussed. Recommend phacoemulsification with intraocular lens implant. Lifestyle lens options discussed. Discussed Astigmatism and treatment options including glasses, Toric IOL or Toric Symfony IOL. Patient understands that she may need to wear glasses after surgery to correct vision. Patient elects to proceed with OD CE first, followed by OS CE. Patient will think about her lens options and tell the surgery schedulers what she has chosen.*Possible Shugarcaine OU*PO APPOINTMENTS: OD CE, 1 day, 1 week, 2 week. OS CE 3-4 weeks after OD with normal follow-up schedule (1 day, 1 week, 1 month)*Patient wasn't a direct referral from Xavier Middleton, OD, but has a history with his office. Follow up - Schedule CE OD first, followed by OS CE Lattice degeneration of peripheral retina, bilateral - Educational material given Related to Lattice degeneration of peripheral retina, bilateral Follow up - Schedule cataract ev aluation Impression/Plan - Di scussed diagnosis in detail with patient. Lattice degeneration OU stable. No sings of Glaucoma or AMD OU. Cataracts discussed in detail with patient. Patient understands cataracts qualify for CE at this time. Schedule Cataract evaluation. General plan -SENILE NUCLEAR CATARACT -VITREOUS OPACITIES NEC -LATTICE DEGENERATION - Discussed floaters. Discussed Lattice Degeneration and the risk of retinal detachment. No signs of any retinal tears seen. Discussed cataracts diagnosis. No treatment for cataracts required at this time. Discussed glasses lens options. Pt will see Luke for new glasses rx. Educational materials provided:about today's exam. RTC as needed. Related to See impression: general plan - RTC as needed Related to See i mpression: general plan lattice ou Related to PERIP H RETINA DEGEN NOS - prn Related to SENIL E NUCLEAR CATARACT early nsc and cortic al changes ou - observation Related to SENILE NUCLEAR CATARACT - [id number] os Related to VITREOUS OPACITIES NEC vit floaters in eye with lattice os - warned symptoms tear/detach Educational materials provided to patient. Related to VITREOUS OPACITIES NEC PERIPH RETINA DEGEN NOS, OU - lattice degeneration OU-vision not affected - will continue to monitor - Discussed dx with pt in detail. Risk of RD discussed. No treatment needed. Will monitor. Letter dictated to Dr Middleton. Related to PERIPH RETINA DEGEN NOS Cataract, Nuclear Sc lerosis, OU - vision not affected - will continue to monitor - Early cataract(s) accounts for patient's complaints. No treatment currently recommended due to VA level, Patient will monitor vision changes and contact us with any decrease in vision, will re-evaluate cataract on return visit. Related to Cataract, Nuclear Sclerosis - 1 year complete Related to Cat aract, Nuclear Sclerosis Assessments Type Assessment Date assessment Encounter for examination follow ing surgery Patient Care Teams Name Effective Dates (start - stop) Status Members No Information
== END 2024-09-13 11:56 | disposition home or self-care (01) ==
PROVIDERS: PCP Internal Medicine; Visit Provider Internal Medicine
DX: Z12.31 Encounter for screening mammogram for malignant neoplasm of breast (principal); Z78.0 Asymptomatic menopausal state; M85.89 Other specified disorders of bone density and structure, multiple sites
CPT/HCPCS: 77063; 77067; 77080

== ENCOUNTER 2024-11-08 16:50 | Outpatient (CLI) | payer MEDICARE, SELFPAY ==
--- NOTE | ~2024-11-08 | XR_ITS ---
AP and lateral views of the right hip Clinical history: Pain Findings: No acute fracture or dislocation is seen. Osseous alignment is anatomic. Minimal degenerati ve change of the right hip joint noted. Soft tissues are unremarkable. Impression: Minimal degenerative change of the right hip joint. Reviewed, dictated and finalized at location . Impression: Minimal degenerative change of the right hip joint.
--- OUTSIDE RECORDS SUMMARY | 2024-11-08 16:54 | XMS_ITS | Clinical Summary ---
Author Organization [facility] Address [address] [address] Phone Care Team Providers Care Stock Puller Name Role Phone Sintia Dunn MD Primary Care Provider [phone] Allergies Active Allergy Reactions Criticality Noted Date [...] Comments Blood Pressure 122/80 05/20/2015 10:11 AM OCEAN IMPORT REPRESENTATIVE Pulse 86 05/20/2015 10:11 AM OCEAN IMPORT REPRESENTATIVE Temperature - - Respiratory Rate - - Oxygen Saturation - - Inhaled Oxygen Concentration - - Weight 57.6 kg (127 lb) 05/20/2015 10:11 AM OCEAN IMPORT REPRESENTATIVE Height 155.8 cm (5' 1.34) 05/20/2015 10:11 AM C Body Mass Index 23.73 05/20/2015 10:11 AM OCEAN IMPORT REPRESENTATIVE Plan of Treatment Health Maintenance Due Date [...] patient's age to complete this topic Insurance [facility] Care Teams Stock Puller Relationship Specialty Start Date End Date Sintia Dunn MD [address] [id number] PCP - General Family Medicine 05/07/15
--- OUTSIDE RECORDS SUMMARY | 2024-11-08 16:54 | XMS_ITS | Continuity of Care Document ---
Author Organization [facility] Address [address] [place] [address] Phone Care Team Providers Care Library Media Assistant Name Role Phone Mino Sawyer MD Unavailable Unavailable Allergies, Adverse Reactions, Alerts Substance Reaction Status Criticality morphine Active No Information Medications Medication Instructions Dosage Effective Dates (start - stop) Status Comments lovastatin 40 mg tablet take 1 tablet by oral route every day with the evening meal 40 MG - Active TIROSINT (unknown strength) 1 tablet by mouth once a day Not Available - Active bupropion HCl SR 150 mg tablet,12 hr sustained-release take 1 tablet by oral route 2 times every day 150 MG - Active duloxetine 30 mg capsule,delayed [...] Diagnoses Date Provider Providers Copied on Encounter [facility], [address] [place], [place] [address], [place], [id number], tel:[phone] SEC Yosi BARON Professional 1 month s/p YAG PC (chief complaint) Encounter for examination following surgery Silverio Herzog. [address] [facility] [place], [place], [address], [place]. tel:[phone] Referring Provider: Xavier Middleton OD, [facility] [address] [place], [address]. tel:[phone] [facility], [address] [place] [address] [address], [place], [place], [address], tel:[phone] SEC [place] Professional Laser procedure (chief complaint) Encounter for examination following surgeryOther secondary cataract, left eye 9 Silverio Herzog. [address] [employer] [employer], [facility] [place], [address], [place]. tel:[phone] Referring Provider: Xavier Middleton OD, [facility] [address] [place], [address]. tel:[phone] [facility], [address], [place], [place], [address], [place] tel:[phone] SEC Yosi BARON Professional Blurry vision (chief complaint) Encounter for examination following surgery 8 iSlverio Herzog. [address], [place], [place], [address], [place]. tel:[phone] Referring Provider: Xavier Middleton OD, [facility] [address] [place], [address]. tel:[phone] [facility], [address], [place], [place], [address], [place] tel:[phone] SEC Yosi BARON Professional Complete Exam (chief complaint) Other secondary cataract, bilateralPre sence of intraocular lens 8 Silverio Herzog. [address], [place], [place], [address], [place]. tel:[phone] Referring Provider: Xavier Middleton OD, [facility] [address] [place], [address]. tel:[phone] [facility], [address], [place], [place], [address], [place] tel:[phone] SEC Yosi BARON Professional No Information 8 Silverio Herzog. [address], [place], [place], [address], [place]. tel:[phone] [facility], [address], [place], [place], [address], [place] tel:[phone] SEC Yosi BARON Professional Post-Op (chief complaint) No Information 7 Silverio Herzog. [address], [place], [place], [address], [place]. tel:[phone] Referring Provider: Xavier Middleton OD, [facility] [address] [place], [address]. tel:[phone] [facility], [address] [place] [address] [address], [place], [place], [address], [place] tel:[phone] SEC Yosi BARON Professional 1 wk Symphony PO (chief complaint) No Information b-2 4-201 7 Silverio Herzog. [address], [address] [place] [place], [place], [address], [place]. tel:[phone] Referring Provider: Xavier Middleton OD, [facility] [address] [place], [address]. tel:[phone] [facility], [address] [place] [address] [address], [place], [place], [address], [place] [phone] SEC Yosi BARON Professional 2 day PO (chief complaint) No Information b-1 0-201 7 Silverio Herzog. [address], [address] [place], [place], [address], [place]. tel:[phone] Referring Provider: Xavier Middleton OD, [facility] [address] [place], [address]. tel:[phone] [facility], [address] [place] [address] [address], [place], [place], [address], [place] tel:[phone] SEC Yosi BARON Professional Post-Op (chief complaint) No Information Feb-0 9-201 7 Asiya Doll. [address], [place], [place], [address], [place]. tel:[phone] Referring Provider: Xavier Middleton OD, [facility] [address] [place], [address]. tel:[phone] [facility], [address] [place] [address] [address], [place], [place], [address], [place] [phone] [facility] No Information 0 7 Silverio Herzog. [address] [facility], [facility] [place], [address], [place]. tel:[phone] Referring Provider: Xavier Middleton OD, [facility] [address] [place], [address]. tel:[phone] [facility], [address] [place] [address] [address], [address], tel:[phone] SEC [facility] No Information 0 7 Silverio Herzog. [address] [facility], [facility] [place], [address], [place]. tel:[phone] Referring Provider: Xavier Middleton OD, [facility] [address] [place], [address]. tel:[phone] [facility], [address] [place] [address] [address], [address], [place] tel:[phone] SEC [place] Professional Post-Op (chief complaint) No Information 0 7 Silverio Herzog. [address] [facility], [facility] [place], [address], [place]. tel:[phone] Referring Provider: Xavier Middleton OD, [facility] [address] [place], [address]. tel:[phone] [facility], [address] [place] [address] [address], [place], [address], [place] tel:[phone] SEC [place] Professional 1 week post op (chief complaint) No Information 7 Silverio Herzog. [address] [facility], [facility] [place], [place], [address], [place]. tel:[phone] Referring Provider: Xavier Middleton OD, [facility] [address] [place], [address]. tel:[phone] [facility], [address], [place], [place], [address], [place] tel:[phone] SEC [facility] Professional 1 day PO PCIOL Symphony Lens (chief complaint) No Information 7 Asiya Doll. [address] [place] [place], [place], [address], [place]. tel:[phone] Referring Provider: Xavier Middleton OD, [facility] [address] [place], [address]. tel:[phone] [facility], [address] [place] [address] [address], [place], [place], [address], [place] tel:[phone] [facility] No Information Silverio Herzog. [address], [address] [place], [place], [address], [place]. tel:[phone] Referring Provider: Xavier Middleton OD, [facility] [address] [place], [address]. tel:[phone] [facility], [address] [place] [address] [address], [place], [place], [address], [place] tel:[phone] SEC Srikanth Ramirezh No Information Silverio Herzog. [address], [address] [place], [place], [address], [place]. tel:[phone] Referring Provider: Xavier Middleton OD, [facility] [address] [place], [address]. tel:[phone] [facility], [address] [place] [address] [address], [place], [place], [address], [place] tel:[phone] SEC Srikanth N [address] Repeat Measurements (chief complaint) No Information 6 Silverio Herzog. [address], [place], [place], [address], [place]. tel:[phone] Referring Provider: Xavier Emi OD, [facility] [address] [place], [address]. tel:[phone] Office/outpa tient Visit, [facility], [address] [place] [address] [address], [place], [place], [address], [place] tel:[phone] SEC [facility] Professional Cataract evaluation (chief complaint) No Information Oct-2 6-201 6 Silverio Herzog. [address] [facility], [facility] [place], [place], [address], [place]. tel:[phone] Referring Provider: Xavier Emi OD, [facility] [address] [place], [address]. tel:[phone] [facility], [address] [place] [address] [address], [place], [place], [address], [place] tel:[phone] SEC [place] Professional Complete Exam (chief complaint) No Information Oct-0 5-201 6 Richkconcetta Doll. [address] [facility], [facility] [place], [place], [address], [place]. tel:[phone] Referring Provider: Xavier Emi OD, [facility] [address] [place], [address]. tel:[phone] Office/outpa tient Visit, [facility], [address] [place] [address] [address], [place], [place], [address], [place] tel:[phone] SEC [facility] Professional No Information Dec-3 0-201 3 Asiya Doll. [address] [facility] [address] [place], [place], [address], [place]. tel:[phone] Referring Provider: Xavierfloridalma Middleton OD, [facility] [address] [place], [address]. tel:[phone] Office/outpa tient Visit, [facility], [address], [place], [place], [address], [place] tel:[phone] SEC Yosi BARON Professional No Information 3 Asiya Doll. [address] [employer] [address], [facility] [place], [place], [address], [place]. tel:[phone] Referring Provider: Xavier Middleton OD, [facility] [address] [place], [address]. tel:[phone] Office/outpa tient Visit, [facility], [address], [place], [place], [address], [place] tel:[phone] SEC Yosi LORAINE Professional No Information 2 Asiya Doll. [address] [employer] [facility] [place], [place], [address], [place]. tel:[phone] Referring Provider: Xavier Middleton OD, [facility] [address] [place], [address]. tel:[phone] Family History Family Member Type Diagnosis Age At Onset Son Problem (finding) retinal detachment Payers Payer name Insurance type Covered green party ID Authoriza tion(s) No Information Social [...] Dr Sawyer. Follow up - [address] [facility] [address] Sawyer for post op Follow up [...] o clinic as scheduled Follow up - as scheduled Impression/Plan - 1 day post op Phaco with PCIOL OD, discussed post op instructions and medication use. Return to clinic as scheduled. Impression/Plan - Ca taract surgery measurements reviewed with patient. Lifestyle lens options discussed. 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
== END 2024-11-08 16:51 | disposition home or self-care (01) ==
LOC: CHSIMG 16:52
PROVIDERS: PCP Internal Medicine; Visit Provider Internal Medicine
DX: M25.551 Pain in right hip (principal)
CPT/HCPCS: 73502

== ENCOUNTER 2024-11-15 08:21 | Outpatient (CLI) | payer MEDICARE, SELFPAY ==
--- NOTE | ~2024-11-15 | MR_ITS ---
MRI of the right hip Clinical history: Pain Technique: Coronal T1-weighted, T2-weighted, and proton-density fat-sat images, and axial T1-weighted and proton-density fat-sat images were acquired through the pelvis. Coronal T2-weighted images and c oronal, axial, and sagittal proton-density fat-sat images were acquired through the right hip. Findings: There is no fracture or avascular necrosis or hip. Bone marrow signals the proximal femora and pelvic bones are unremarkable. There is moderate right hip joint osteoarthritis with diffuse brittany dral thinning and small femoral head neck junction osteophytes. No joint effusion. No right acetabula r labral tear evident. There is minimal degenerative change of the left hip joint with mild chondroma lacia. Visualized musculature about the pelvis and right hip is unremarkable. No muscle atrophy or edema. Vi sualized tendons are intact. No soft tissue mass or fluid collection. No bursitis. IMPRESSION: Moderate osteoarthritis of the right hip joint, as detailed above. Mild osteoarthritis of the left hip joint. Reviewed, dictated and finalized at location .
--- OUTSIDE RECORDS SUMMARY | 2024-11-15 08:27 | XMS_ITS | Continuity of Care Document ---
Author Organization [facility] [place] [place] Address [address] [place] [address] Phone Care Team Providers Care Appeals Coordinator Name Role Phone Mino Sawyer MD Unavailable [...] Diagnoses Date Provider Providers Copied on Encounter [facility], [address] [place], [place] [address], [place], [id number], tel:[phone] SEC Yosi BARON Professional 1 month s/p YAG PC (chief complaint) Encounter for examination following surgery Silverio Herzog. [address] [facility] [place], [address], [place]. tel:[phone] Referring Provider: Xavier Middleton OD, [facility] [address] [place], [address]. tel:[phone] [facility], [address] [place] [address] [address], [place], [place], [address], tel:[phone] SEC [place] Professional Laser procedure (chief complaint) Encounter for examination following surgeryOther secondary cataract, left eye 9 Silverio Herzog. [address] [employer], [facility] [place], [address], [place]. tel:[phone] Referring Provider: Xavier Middleton OD, [facility] [address] [place], [address]. tel:[phone] [facility], [address], [place], [place], [address], [place] tel:[phone] SEC Yois BARON Professional Blurry vision (chief complaint) Encounter for examination following surgery 8 Silverio Herzog. [address], [place], [place], [address], [place]. tel:[phone] Referring Provider: Xavier Middleton OD, [facility] [address] [place], [address]. tel:[phone] [facility], [address], [place], [place], [address], [place] tel:[phone] SEC Yosi BARON Professional Complete Exam (chief complaint) Other secondary cataract, bilateralPre sence of intraocular lens 8 Silverio Herzog. [address], [place], [place], [address], [place]. tel:[phone] Referring Provider: Xavier Middleton OD, [facility] [address] [place], [address]. tel:[phone] [facility], [address], [place], [place], [address], [place] tel:[phone] SEC Yosi BARON Professional No Information 8 Silverio Herzog. [address], [place], [place], [address], [place]. tel:[phone] [facility], [address], [place], [place], [address], [place] tel:[phone] SEC Yosi BARON Professional Post-Op (chief complaint) No Information 7 Silverio Herzog. [address], [place], [place], [address], [place]. tel:[phone] Referring Provider: Xavier Middleton OD, [facility] [address] [place], [address]. tel:[phone] [facility], [address] [place] [address] [address], [place], [place], [address], [place] tel:[phone] SEC Yosi BARON Professional 1 wk Symphony PO (chief complaint) No Information b-2 4-201 7 Silverio Herzog. [address], [address] [place], [address], [place]. tel:[phone] Referring Provider: Xavier Middleton OD, [facility] [address] [place], [address]. tel:[phone] [facility], [address] [place] [address] [address], [place], [place], [address], [place] [phone] SEC Yosi BARON Professional 2 day PO (chief complaint) No Information b-1 0-201 7 Silverio Herzog. [address], [address] [place], [address], [place]. tel:[phone] Referring Provider: Xavier Middleton OD, [facility] [address] [place], [address]. tel:[phone] [facility], [address] [place] [address] [address], [place], [place], [address], [place] tel:[phone] SEC Yosi BARON Professional Post-Op (chief complaint) No Information Feb-0 9-201 7 Asiya Doll. [address], [place], [place], [address], [place]. tel:[phone] Referring Provider: Xavier Middleton OD, [facility] [address] [place], [address]. tel:[phone] [facility], [address] [place] [address] [address], [place], [place], [address], [place] [phone] [facility] No Information 0 7 Silverio Herzog. [address] [facility], [facility] [place], [address], [place]. tel:[phone] Referring Provider: Xavier Middleton OD, [facility] [address] [place], [address]. tel:[phone] [facility], [address] [place] [address] [address], [place], [address], tel:[phone] SEC [place] [address] [facility] No Information 0 7 Silverio Herzog. [address] [facility], [facility] [place], [address], [place]. tel:[phone] Referring Provider: Xavier Middleton OD, [facility] [address] [place], [address]. tel:[phone] [facility], [address] [place] [address] [address], [place], [address], [place] tel:[phone] SEC [place] Professional Post-Op (chief complaint) No Information 0 7 Silverio Herzog. [address] [facility], [facility] [place], [address], [place]. tel:[phone] Referring Provider: Xavier Middleton OD, [facility] [address] [place], [address]. tel:[phone] [facility], [address] [place] [address] [address], [place], [address], [place] tel:[phone] SEC [place] Professional 1 week post op (chief complaint) No Information 7 Silverio Herzog. [address] [facility], [facility] [place], [address], [place]. tel:[phone] Referring Provider: Xavier Middleton OD, [facility] [address] [place], [address]. tel:[phone] [facility], [address], [place], [place], [address], [place] tel:[phone] SEC [facility] Professional 1 day PO PCIOL Symphony Lens (chief complaint) No Information 7 Asiya Doll. [address], [address] [place], [address], [place]. tel:[phone] Referring Provider: Xavier Middleton OD, [facility] [address] [place], [address]. tel:[phone] [facility], [address] [place] [address] [address], [place], [place], [address], [place] tel:[phone] [facility] No Information Silverio Herzog. [address], [address] [place], [address], [place]. tel:[phone] Referring Provider: Xavier Middleton OD, [facility] [address] [place], [address]. tel:[phone] [facility], [address] [place] [address] [address], [place], [place], [address], [place] tel:[phone] SEC Srikanth Ramirezh No Information Silverio Herzog. [address], [address] [place], [address], [place]. tel:[phone] Referring Provider: Xavier Middleton OD, [facility] [address] [place], [address]. tel:[phone] [facility], [address] [place] [address] [address], [place], [place], [address], [place] tel:[phone] SEC Srikanth N [address] Repeat Measurements (chief complaint) No Information 6 Silverio Herzog. [address], [place], [place], [address], [place]. tel:[phone] Referring Provider: Xavier Emi OD, [facility] [address] [place], [address]. tel:[phone] Office/outpa tient Visit, [facility], [address] [place] [address] [address], [place], [place], [address], [place] tel:[phone] SEC [facility] Professional Cataract evaluation (chief complaint) No Information Oct-2 6-201 6 Silverio Herzog. [address] [facility], [facility] [place], [address], [place]. tel:[phone] Referring Provider: Xavier Emi OD, [facility] [address] [place], [address]. tel:[phone] [facility], [address] [place] [address] [address], [place], [place], [address], [place] tel:[phone] SEC [place] Professional Complete Exam (chief complaint) No Information Oct-0 5-201 6 Richkconcetta Doll. [address] [facility], [facility] [place], [place], [address], [place]. tel:[phone] Referring Provider: Xavier Emi OD, [facility] [address] [place], [address]. tel:[phone] Office/outpa tient Visit, [facility], [address] [place] [address] [address], [place], [place], [address], [place] tel:[phone] SEC [facility] Professional No Information Dec-3 0-201 3 Asiya Doll. [address] [facility] [place], [address], [place]. tel:[phone] Referring Provider: Xavierfloridalma Middleton OD, [facility] [address] [place], [address]. tel:[phone] Office/outpa tient Visit, [facility], [address], [place], [place], [address], [place] tel:[phone] SEC Yosi BARON Professional No Information 3 Asiya Doll. [address] [employer], [facility] [place], [address], [place]. tel:[phone] Referring Provider: Xavier Middleton OD, [facility] [address] [place], [address]. tel:[phone] Office/outpa tient Visit, [facility], [address], [place], [place], [address], [place] tel:[phone] SEC Yosi LORAINE Professional No Information 2 Asiya Doll. [address] [employer], [facility] [place], [place], [address], [place]. tel:[phone] Referring Provider: Xavier Middleton OD, [facility] [address] [place], [address]. tel:[phone] Family History Family Member Type Diagnosis Age At Onset Son Problem (finding) retinal detachment Payers Payer name Insurance type Covered democrat ID Authoriza tion(s) No Information Social History [...] Dr Sawyer. Follow up - [address] [facility] [address] Sawyer for post op Follow [...] Lifestyle lens options discussed. 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
== END 2024-11-15 08:22 | disposition home or self-care (01) ==
LOC: CHSIMG 08:22
PROVIDERS: PCP Internal Medicine; Visit Provider Internal Medicine
DX: M25.551 Pain in right hip (principal); M16.0 Bilateral primary osteoarthritis of hip
CPT/HCPCS: 73721

== ENCOUNTER 2024-12-03 09:42 | Outpatient (CLI) | payer MEDICARE, SELFPAY ==
--- OUTSIDE RECORDS SUMMARY | 2024-12-03 09:49 | XMS_ITS | Clinical Summary ---
Author Organization [facility] Address [address] [address] Phone Care Team Providers Care Inspector Precision Name Role Phone Sintia Dunn MD Primary Care Provider [phone] Allergies Active Allergy Reactions Criticality Noted Date [...] Comments Blood Pressure 122/80 05/20/2015 10:11 AM B[employer]INGUAL INSIDE SALES REPRESENTATIVE Pulse 86 05/20/2015 10:11 AM BILINGUAL INSIDE SALES REPRESENTATIVE Temperature - - Respiratory Rate - - Oxygen Saturation - - Inhaled Oxygen Concentration - - Weight 57.6 kg (127 lb) 05/20/2015 10:11 AM B[employer]INGUAL INSIDE SALES REPRESENTATIVE Height 155.8 cm (5' 1.34) 05/20/2015 10:11 AM C Body Mass Index 23.73 05/20/2015 10:11 AM B[employer]INGUAL INSIDE SALES REPRESENTATIVE Plan of Treatment Health Maintenance Due [...] Insurance [facility] Care Teams Inspector Precision Relationship Specialty Start Date End Date Sintia Dunn MD [address] [id number] PCP - General Family Medicine 05/07/15
--- OUTSIDE RECORDS SUMMARY | 2024-12-03 09:49 | XMS_ITS | Clinical Summary ---
Author Organization [facility] Address [facility] [address] [place] [address] Care Team Providers Care Stem Sizer Name Role Phone Unavailable Primary Care Provider [...] Td Vaccines ( 1 - Tdap) 1966 Pneumococcal Vaccine: 50+ Ye ars (1 of 1 - PCV) 1997 Zoster Vaccines (1 of 2) 1997 Dexa Scan (General) 2012 RSV Immunization or 60+ Years (1 - 1-dose 75+ series) 2022 COVID-19 Vaccine (2023-2 5 season) 2024 Meningococcal B Vaccine Aged Out No l onger eligible based on patient's age to complete this topic Meningococcal Vaccine Aged Out No anabela deirdre eligible based on patient's age to complete this topic RSV Immunizations Under 20 Months Aged Out No longer eligible based on patient's age to complete this topic
--- OUTSIDE RECORDS SUMMARY | 2024-12-03 09:49 | XMS_ITS | Continuity of Care Document ---
Author Organization [facility] [place] [address] [place] [address] Phone Care Team Providers Care Manager Security And Safety Name Role Phone Mino Sawyer MD Unavailable [...] Diagnoses Date Provider Providers Copied on Encounter [facility], [address] [place], [place] [address], [place], [id number], tel:[phone] SEC Yosi BARON Professional 1 month s/p YAG PC (chief complaint) Encounter for examination following surgery Silverio Herzog. [address] [facility], [place] [place], [address], [place]. tel:[phone] Referring Provider: Xavier Middleton OD, [employer] [facility] [address] [place], [address]. tel:[phone] [facility], [address] [place] [address] [address], [place], [place], [address], tel:[phone] SEC [place] Professional Laser procedure (chief complaint) Encounter for examination following surgeryOther secondary cataract, left eye 9 Silverio Herzog. [address] [employer], [facility] [place], [address], [place]. tel:[phone] Referring Provider: Xavier Middleton OD, [facility] [address], [address]. tel:[phone] [facility], [address], [place], [place], [address], [place] tel:[phone] SEC Yosi BARON Professional Blurry vision (chief complaint) Encounter for examination following surgery 8 Silverio Herzog. [address], [place], [place], [address], [place]. tel:[phone] Referring Provider: Xavier Middleton OD, [facility] [address] [place], [address]. tel:[phone] [facility], [address], [place], [place], [address], [place] tel:[phone] SEC Yosi BARON Professional Complete Exam (chief complaint) Other secondary cataract, bilateralPre sence of intraocular lens 8 Silverio Herzog. [address], [place], [place], [address], [place]. tel:[phone] Referring Provider: Xavier Middleton OD, [facility] [address] [place], [address]. tel:[phone] [facility], [address], [place], [place], [address], [place] tel:[phone] SEC Yosi BARON Professional No Information 8 Silverio Herzog. [address], [place], [place], [address], [place]. tel:[phone] [facility], [address], [place], [place], [address], [place] tel:[phone] SEC Yosi BARON Professional Post-Op (chief complaint) No Information 7 Silverio Herzog. [address], [place], [place], [address], [place]. tel:[phone] Referring Provider: Xavier Middleton OD, [facility] [address] [place], [address]. tel:[phone] [facility], [address] [place] [address] [address], [place], [place], [address], [place] tel:[phone] SEC Yosi BARON Professional 1 wk Symphony PO (chief complaint) No Information b-2 4-201 7 Silverio Herzog. [address] [employer], [address] [place], [address], [place]. tel:[phone] Referring Provider: Xavier Middleton OD, [facility] [address] [place], [address]. tel:[phone] [facility], [address] [place] [address] [address], [place], [place], [address], [place] [phone] SEC Yosi BARON Professional 2 day PO (chief complaint) No Information b-1 0-201 7 Silverio Herzog. [address] [employer], [address] [place], [address], [place]. tel:[phone] Referring Provider: Xavier Middleton OD, [facility] [address] [place], [address]. tel:[phone] [facility], [address] [place] [address] [address], [place], [place], [address], [place] tel:[phone] SEC Yosi BARON Professional Post-Op (chief complaint) No Information Feb-0 9-201 7 Asiya Doll. [address], [address], [place], [place], [address], [place]. tel:[phone] Referring Provider: Xavier Middleton OD, [facility] [address] [place], [address]. tel:[phone] [facility], [address] [place] [address] [address], [place], [place], [address], [place] [phone] [facility] No Information 0 7 Silverio Herzog. [address] [facility], [facility] [place], [address], [place]. tel:[phone] Referring Provider: Xavier Middleton OD, [facility] [address] [place], [address]. tel:[phone] [facility], [address] [place] [address] [address], [place], [address], tel:[phone] SEC [place] [facility] No Information 0 7 Silverio Herzog. [address] [facility], [facility] [place], [address], [place]. tel:[phone] Referring Provider: Xavier Middleton OD, [facility] [address] [place], [address]. tel:[phone] [facility], [address] [place] [address] [address], [place], [address], [place] tel:[phone] SEC [place] Professional Post-Op (chief complaint) No Information 0 7 Silverio Herzog. [address] [facility], [facility] [place], [address], [place]. tel:[phone] Referring Provider: Xavier Middleton OD, [facility] [address] [place], [address]. tel:[phone] [facility], [address] [place] [address] [address], [place], [address], [place] tel:[phone] SEC [place] Professional 1 week post op (chief complaint) No Information 7 Silverio Herzog. [address] [facility], [facility] [place], [address], [place]. tel:[phone] Referring Provider: Xavier Middleton OD, [facility] [address] [place], [address]. tel:[phone] [facility], [address], [place], [place], [address], [place] tel:[phone] SEC [facility] Professional 1 day PO PCIOL Symphony Lens (chief complaint) No Information 7 Asiya Doll. [address], [address] [place], [address], [place]. tel:[phone] Referring Provider: Xavier Middleton OD, [facility] [address] [place], [address]. tel:[phone] [facility], [address] [place] [address] [address], [place], [place], [address], [place] tel:[phone] [facility] No Information Silverio Herzog. [address], [address] [place], [address], [place]. tel:[phone] Referring Provider: Xavier Middleton OD, [facility] [address] [place], [address]. tel:[phone] [facility], [address] [place] [address] [address], [place], [place], [address], [place] tel:[phone] SEC Srikanth Ramirezh No Information Silverio Herzog. [address], [address] [place], [address], [place]. tel:[phone] Referring Provider: Xavier Middleton OD, [facility] [address] [place], [address]. tel:[phone] [facility], [address] [place] [address] [address], [place], [place], [address], [place] tel:[phone] SEC [place] N [address] Repeat Measurements (chief complaint) No Information 6 Silverio Herzog. [address], [place], [place], [address], [place]. tel:[phone] Referring Provider: Xavier Emi OD, [facility] [address] [place], [address]. tel:[phone] Office/outpa tient Visit, [facility], [address] [place] [address] [address], [place], [place], [address], [place] tel:[phone] SEC [facility] Professional Cataract evaluation (chief complaint) No Information Oct-2 6-201 6 Silverio Herzog. [address] [facility], [facility] [place], [address], [place]. tel:[phone] Referring Provider: Xavier Emi OD, [facility] [address] [place], [address]. tel:[phone] [facility], [address] [place] [address] [address], [place], [place], [address], [place] tel:[phone] SEC [place] Professional Complete Exam (chief complaint) No Information Oct-0 5-201 6 Richkconcetta Doll. [address] [facility], [facility] [place], [address], [place]. tel:[phone] Referring Provider: Xavier Emi OD, [facility] [address] [place], [address]. tel:[phone] Office/outpa tient Visit, [facility], [address] [place] [address] [address], [place], [place], [address], [place] tel:[phone] SEC [facility] Professional No Information Dec-3 0-201 3 Asiya Doll. [address] [facility] [place] [place], [address], [place]. tel:[phone] Referring Provider: Xavierfloridalma Middleton OD, [facility] [address] [place], [address]. tel:[phone] Office/outpa tient Visit, [facility] [address], [place], [place], [address], [place] tel:[phone] SEC Yosi BARON Professional No Information 3 Asiya Doll. [address] [employer], [facility] [place], [address], [place]. tel:[phone] Referring Provider: Xavier Middleton OD, [facility] [address] [place], [address]. tel:[phone] Office/outpa tient Visit, [email or web address]], [address], [place], [place], [address], [place] tel:[phone] SEC Yosi LORAINE Professional No Information 2 Asiya Doll. [address] [employer], [facility] [place], [address], [place]. tel:[phone] Referring Provider: Xavier Middleton OD, [facility] [address] [place], [address]. tel:[phone] Family History Family Member Type Diagnosis Age [...] Dr Sawyer. Follow up - 1 [facility] Sawyer for post op Follow up [...] Lifestyle lens options discussed. 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 No treatment currently recommended due to [place] level, Patient will monitor vision changes and contact us with any decrease in vision, will re-evaluate cataract on return visit. Related to Cataract, Nuclear Sclerosis Assessments Type Assessment Date assessment Encounter for examination follow ing surgery Patient Care Teams Name Effective Dates (start - stop) Status Members No Information
[2024-12-03 10:10] LABS: Hematocrit 45.3 % (35.0-42.0); Hemoglobin 14.4 g/dL (11.7-13.8); Mean Corpuscular HGB Conc 31.8 g/dL (32-36); Mean Corpuscular Hemoglobin 29.1 pg (27.0-31.0); Mean Corpuscular Volume 91.7 fL (78.0-102.0); Platelet Count Result 352 K/mm3 (150-420); Red Blood Count 4.94 M/mm3 (4.20-5.40); White Blood Count 5.8 K/mm3 (4.8-10.8)
[2024-12-03 10:11] LABS: Add Urine Microscopic? YES; Appearance Urine Clear (Clear); Glucose Urine UA Negative (Negative); Leukocyte Esterase Ur Trace (Negative); Nitrate Urine Negative (Negative); Specific Grav Ur 1.010 (1.010-1.020)
[2024-12-03 10:25] LABS: Alanine Aminotransferase 17 U/L (6-35); Albumin Level 4.3 g/dL (3.5-5.1); Aspartate Amino Transferase 28 U/L (14-36); Blood Urea Nitrogen 15 mg/dL (7-17); Carbon Dioxide 29 mmol/L (22-30); Cholesterol 210 mg/dL (0-200); Creatine Kinase 47 U/L (30-135); Estimated Glomerular Filt Rate > 60; Potassium 5.3 mmol/L (3.4-5.0); Sodium 139 mmol/L (137-145); Total Protein 6.6 g/dL (6.3-8.2); Triglycerides 74 mg/dL (<150)
[2024-12-03 10:27] LABS: Hemoglobin A1C 5.7 % (<5.7)
[2024-12-03 10:28] LABS: Alkaline Phosphatase 53 U/L (38-126); Anion Gap 3 mmol/L (4-12); Bilirubin,Total 0.9 mg/dL (0.2-1.3); Calcium 9.4 mg/dL (8.4-10.2); Chloride 107 mmol/L (98-107); Glucose 94 mg/dL (65-110); HDL Direct 72 mg/dL; Osmolality Calculated 288 mOsm/kg (285-295)
[2024-12-03 10:41] LABS: Free T3 4.03 pg/mL (2.18-3.98); Free T4 Free Thyroxine 1.74 ng/dL (0.78-2.19)
[2024-12-03 10:54] LABS: Thyroid Stimulating Hormone 0.238 uIU/mL (0.465-4.680)
== END 2024-12-03 09:43 | disposition home or self-care (01) ==
LOC: CHSLAB 09:45
PROVIDERS: PCP Internal Medicine; Visit Provider Internal Medicine
DX: R00.2 Palpitations (principal); R73.01 Impaired fasting glucose; E03.4 Atrophy of thyroid (acquired); M81.0 Age-related osteoporosis without current pathological fracture; E78.2 Mixed hyperlipidemia
CPT/HCPCS: 36415; 80053; 80061; 81001; 82306; 82550; 83036; 84439; 84443; 84481; 85027

== ENCOUNTER 2025-03-09 08:54 | Outpatient (CLI) | payer MEDICARE, SELFPAY ==
--- NOTE | ~2025-03-09 | MR_ITS ---
EXAMINATION: MR brain IAC wo/w con DATE: 03/09/2025 10:07 INDICATION: Loss of hearing in both ears. TECHNIQUE: Magnetic resonance imaging (MRI) of the brain, brainstem, and internal auditory canals was performed without and with 10 mL MultiHance intravenous contrast. COMPARISON: Brain MRI 05/03/2015 FINDINGS: There is no intracranial hemorrhage, acute infarction, or abnormal intracranial mass lesion. The ventricles are normal in size. There are likely changes of ocular lens replacement surgeries. The internal auditory canals, inner ears, and tympanic cavities are normal. The mastoid air cells are normal. There is mild mucosal thickening in the paranasal sinuses. IMPRESSION: 1. Normal brain. Reviewed, dictated and finalized at location E. IMPRESSION: 1. Normal brain.
--- OUTSIDE RECORDS SUMMARY | 2025-03-09 08:56 | XMS_ITS | Clinical Summary ---
Author Organization [facility] Address [address] [address] Phone Care Team Providers Care Entry Specialists Name Role Phone Sintia Dunn MD Primary Care Provider [phone] Allergies Active Allergy Reactions Criticality Noted Date [...] Comments Blood Pressure 122/80 05/20/2015 10:11 AM MOBILE PARAMEDICAL EXAMINER Pulse 86 05/20/2015 10:11 AM MOBILE PARAMEDICAL EXAMINER Temperature - - Respiratory Rate - - Oxygen Saturation - - Inhaled Oxygen Concentration - - Weight 57.6 kg (127 lb) 05/20/2015 10:11 AM MOBILE PARAMEDICAL EXAMINER Height 155.8 cm (5' 1.34) 05/20/2015 10:[address] [facility] Body Mass Index 23.73 05/20/2015 10:11 AM MOBILE PARAMEDICAL EXAMINER Plan of Treatment Health Maintenance Due Date Last Done Comments Hepatitis C Virus (HCV) Screening 1945 TdaP Immunization 1945 Pneumococcal Immunization (5 0+ years) (1 of 1 - PCV) 1997 Zoster Immunization (1 of 2) 1997 Respiratory Syncytial Virus (RSV) Immunization (Adult) (1 - 1-dose 75+ series) 2022 Influenza Immunization (#1) 2025 04/01/2015 SARS-COV-2 Immunization ( - season) 2025 Hepatitis B Immunization Aged Out No longer eligible based on patient's age to complete this topic Human Papillomavirus (HPV) Immunization Aged Out No longer eligible b ased on patient's age to complete this topic Meningococcal Immunization (ACWY) Aged Out No longer eligible based on patient's age to complete this topic Rotavirus Immunization Aged Out No lo nger eligible based on patient's age to complete this topic Insurance [facility] Care Teams Entry Specialists Relationship Specialty Start Date End Date Sintia Dunn MD [address] [place] [address] PCP - General Family Medicine 05/07/15
== END 2025-03-09 08:55 | disposition home or self-care (01) ==
LOC: CHSIMG 08:54
PROVIDERS: PCP Internal Medicine; Visit Provider Otolaryngology
DX: H90.41 Sensorineural hearing loss, unilateral, right ear, with unrestricted hearing on the contralateral side (principal)
CPT/HCPCS: 70553; A9577

== ENCOUNTER 2025-04-29 10:55 | Outpatient (CLI) | payer MEDICARE, SELFPAY ==
--- NOTE | ~2025-04-29 | XR_ITS ---
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 Findings: No acute fracture or malalignment. No significant degenerative changes. Soft tissues unremarkable. Impression: No acute fracture or malalignment. Reviewed, dictated and finalized at location P. NG PROMOTER Impression: No acute fracture or malalignment.
--- OUTSIDE RECORDS SUMMARY | 2025-04-29 12:32 | XMS_ITS | Clinical Summary ---
Author Organization [facility] Address [address] [place] [address] Care Team Providers Care Patient Transport Officer Name Role Phone Unavailable Primary Care Provider [...] - 1-dose 75+ series) 2022 COVID-19 Vaccine (2024-2 6 season) 2025 Influenza Adult (#1) 2025 Hepatitis A Vaccines Aged Out No long er eligible based on patient's age to complete this topic Meningococcal B Vaccine Aged Out No l onger eligible based on patient's age to complete this topic Meningococcal Vaccine Aged Out No anabela deirdre eligible based on patient's age to complete this topic RSV Immunizations Under 20 Months Aged Out No longer eligible based on patient's age to complete this topic
--- OUTSIDE RECORDS SUMMARY | 2025-04-29 12:32 | XMS_ITS | Clinical Summary ---
Author Organization [facility] Address [address] [address] Phone Care Team Providers Care Thermo Processor Name Role Phone Sintia Dunn MD Primary Care Provider [phone] Allergies Active Allergy Reactions Criticality Noted Date [...] Comments Blood Pressure 122/80 05/20/2015 10:11 AM GEOMETRY TEACHER Pulse 86 05/20/2015 10:11 AM GEOMETRY TEACHER Temperature - - Respiratory Rate - - Oxygen Saturation - - Inhaled Oxygen Concentration - - Weight 57.6 kg (127 lb) 05/20/2015 10:11 AM GEOMETRY TEACHER Height 155.8 cm (5' 1.34) 05/20/2015 10:11 AM [facility] Body Mass Index 23.73 05/20/2015 10:11 AM GEOMETRY TEACHER Plan of Treatment Health Maintenance Due Date [...] patient's age to complete this topic Insurance [facility] Care Teams Thermo Processor Relationship Specialty Start Date End Date Sintia Dunn MD [address] [place] [address] PCP - General Family Medicine 05/07/15
== END 2025-04-29 10:56 | disposition home or self-care (01) ==
LOC: CHSIMG 10:56
PROVIDERS: PCP Internal Medicine; Visit Provider Internal Medicine
DX: M25.562 Pain in left knee (principal)
CPT/HCPCS: 73562